=== PATIENT | male | born 1955 | race African-American/Black ===

== ENCOUNTER 2017-08-05 13:06 | Inpatient (IN) | payer SELFPAY ==
[~2017-08-05] VITALS: Ht 180.3 cm; Wt 101.4 kg
[2017-08-05] VITALS (15 sets, daily range): BP systolic 179–230; BP diastolic 76–132; PULSE 75–109; RESP 14–20; TEMP 97.3–98.7; O2SAT 98–100
[2017-08-05] MEDS ORDERED: FISHCAP4 PO (13:18)
[2017-08-05] MEDS ORDERED: ASPI81CH6 CHEW (13:18)
[2017-08-05] MEDS ORDERED: SODIUM CHLORIDE 0.9% FLUSH 10 ML FLUSH IVF PRN (13:45)
--- NOTE | 2017-08-05 13:46 | PD ---
HPI Chief Complaint: Respiratory Symptoms Time Seen by Provider: 13:24 Travel History International Travel<30 days: No Contact w/Intl Traveler<30days: No Traveled to known affect area: No History of Present Illness HPI Patient comes to the emergency department complaining of dyspnea on exertion and dizziness ongoing since bike week in May of this year. Patient states symptoms began after he fell down some stairs. Patient states he is fine if he is resting however if he goes up more than 2 or 3 flights of stairs he becomes short of breath and dizzy. Patient states he was able to ride 30 miles on a bike until this occurred now is only able to go about 5 miles before he becomes short of breath. Patient denies any chest pain with this, fevers, cough, back pain, abdominal pain, neck pain, or numbness or tingling anywhere. Patient states that he does travel as he is retired most recently in the beginning of March. Patient reports he has lost 30 pounds over the past 2 years secondary to bike riding 30 miles on a regular basis. Denies any pain or radiation of pain. PFSH Past Medical History Hypertension: Yes Tetanus Vaccination: > 5 Years Influenza Vaccination: No Past Surgical History Other Surgery: Yes Social History Alcohol Use: Yes (occ) Tobacco Use: Yes Substance Use: No Allergies-Medications (Allergen,Severity, Reaction): Coded Allergies: No Known Allergies (Verified Allergy, Unknown, 08/05/17) Reported Meds & Prescriptions Reported Meds & Active Scripts Active Reported Fish Oil + D3 (Fish Oil-Cholecalciferol) 1,200-1,000 Mg-Unit Cap 1 Cap PO DAILY Aspirin Low Dose (Aspirin) 81 Mg Chew 81 Mg CHEW DAILY Review of Systems Except as stated in HPI: all other systems reviewed are Neg Physical Exam Narrative GENERAL: Well-developed, well nourished, in no acute distress, and non-ill appearing. SKIN: Focused skin assessment warm and dry. HEAD: Atraumatic. Normocephalic. EYES: Pupils equal and round. EOMI. No scleral icterus. No injection or drainage. ENT: No nasal bleeding or discharge. Mucous membranes pink and moist. NECK: Trachea midline. No JVD. Supple. No nuclear rigidity. CARDIOVASCULAR: Regular rate and rhythm. No murmur appreciated. RESPIRATORY: No accessory muscle use. No respiratory distress. Clear to auscultation. Breath sounds equal bilaterally. GASTROINTESTINAL: Abdomen soft, non-tender, nondistended, and no guarding. Hepatic and splenic margins not palpable. Normal bowel sounds x4. No pulsatile mass. MUSCULOSKELETAL: No obvious deformities. No clubbing. No cyanosis. No edema. Full range of motion. NEUROLOGICAL: Awake and alert. No obvious cranial nerve deficits. Motor grossly within normal limits. Normal speech. PSYCHIATRIC: Appropriate mood and affect; insight and judgment normal. Data Data Last Documented VS Vital Signs Date Time Temp Pulse Resp B/P (MAP) Pulse Ox O2 Delivery O2 Flow Rate FiO2 08/05/17 13:26 98 16 99 Room Air 08/05/17 13:10 98.4 179/86 (117) Orders Orders Complete Blood Count With Diff (08/05/17 13:33) Basic Metabolic Panel (Bmp) (08/05/17 13:33) B-Type Natriuretic Peptide (08/05/17 13:33) Act Partial Throm Time (Ptt) (08/05/17 13:33) Prothrombin Time / Inr (Pt) (08/05/17 13:33) Magnesium (Mg) (08/05/17 13:33) Iv Access Insert/Monitor (08/05/17 13:33) Electrocardiogram (08/05/17 13:33) Ecg Monitoring (08/05/17 13:33) Oximetry (08/05/17 13:33) Oxygen Administration (08/05/17 13:33) Chest, Single Ap (08/05/17 13:33) Sodium Chloride 0.9% Flush (Ns Flush) (08/05/17 13:45) Type And Screen (08/05/17 13:56) Red Blood Cells (Rbc) (08/05/17 13:56) Blood Product Administration (08/05/17 13:56) Sodium Chloride 0.9... W/Pantoprazole In (08/05/17 15:06) Sodium Chloride 0.9... W/Pantoprazole In (08/05/17 15:06) Admit Order (Ed Use Only) (08/05/17 ) Vital Signs (Adult) Q4H (08/05/17 15:32) Diet Npo (08/05/17 Dinner) Activity Oob With Assistance (08/05/17 15:32) Notify Dr: Other (08/05/17 15:32) Consult Gastroenterology (08/05/17 ) Labs Laboratory Tests Test 08/05/17 13:30 White Blood Count 10.3 TH/MM3 Red Blood Count 3.49 MIL/MM3 Hemoglobin 4.9 GM/DL Hematocrit 19.5 % Mean Corpuscular Volume 55.8 FL Mean Corpuscular Hemoglobin 14.1 PG Mean Corpuscular Hemoglobin Concent 25.3 % Red Cell Distribution Width 21.7 % Platelet Count 453 TH/MM3 Mean Platelet Volume 8.4 FL CBC Comment AUTO DIFF Differential Total Cells Counted 100 Neutrophils % (Manual) 84 % Band Neutrophils % 1 % Lymphocytes % 10 % Monocytes % 2 % Eosinophils % 3 % Neutrophils # (Manual) 8.8 TH/MM3 Differential Comment FINAL DIFF MANUAL Platelet Estimate HIGH Platelet Morphology Comment ENLARGED Ovalocytes 1+ Acanthocytes OCC Keratocytes OCC Prothrombin Time 10.9 SEC Prothromb Time International Ratio 1.1 RATIO Activated Partial Thromboplast Time 24.2 SEC Blood Urea Nitrogen 10 MG/DL Creatinine 1.26 MG/DL Random Glucose 121 MG/DL Calcium Level 8.8 MG/DL Magnesium Level 2.2 MG/DL Sodium Level 140 MEQ/L Potassium Level 3.8 MEQ/L Chloride Level 107 MEQ/L Carbon Dioxide Level 24.5 MEQ/L Anion Gap 9 MEQ/L Estimat Glomerular Filtration Rate 58 ML/MIN B-Type Natriuretic Peptide 84 PG/ML MDM Medical Decision Making Medical Screen Exam Complete: Yes Emergency Medical Condition: Yes Interpretation(s) Last Impressions Chest X-Ray 08/05/17 1333 Signed Impressions: CONCLUSION: No acute cardiopulmonary disease. Differential Diagnosis CHF exacerbation, pneumonia, anemia, metabolic disturbance, hypovolemia Narrative Course Patient seen and examined. IV was established patient was placed on continuous cardiac monitoring. Initial laboratory radiological studies were ordered. After having hemoglobin found to be less than 5 blood transfusion was ordered. This was discussed with patient who is uncertain initially if he was willing to stay in the hospital and received transfusion as he states he has stuff that he has to do outside the hospital. Patient was given time to get think this over and was agreeable for admission. All questions were answered. Patient remained stable throughout ED course. Discussed patient with Dr. Long, who is in agreement with plan of care and disposition. Discussed patient with hospitalist who is agreeable to admit the patient. HemaPrompt Point of Care Internal Pos. & Neg. Controls: Passed Fecal Specimen Occult Blood: Positive Comment Verbal consent was obtained. Digital rectal exam was performed. Stool specimen applied and test interpreted between 1 and 3 minutes of application and the result was positive. Internal Controls: Both positive and negative controls were validated. shoe patternmaker Ameena was present during this exam. Physician Communication Physician Communication [phone] Gomez, who is agreeable to admit the patient request GI consult be placed. Diagnosis Primary Impression: GI bleed Qualified Codes: K92.2 - Gastrointestinal hemorrhage, unspecified Additional Impression: Symptomatic anemia Admitting Information Admitting Physician Requests: Observation Condition: Stable James Cordero August 05, 2017 13:46
[2017-08-05 13:49] LABS: MEAN CELL VOLUME 55.8 FL (80.0-100.0); MEAN CORPUSCULAR HEMOGLOBIN 14.1 PG (27.0-34.0); MEAN PLATELET VOLUME 8.4 FL (7.0-11.0); PLATELET COUNT 453 TH/MM3 (150-450); RED BLOOD COUNT 3.49 MIL/MM3 (4.50-5.90); RED CELL DISTRIBUTION WIDTH 21.7 % (11.6-17.2); WHITE BLOOD COUNT 10.3 TH/MM3 (4.0-11.0)
[2017-08-05 13:54] LABS: MEAN CORPUSCULAR HGB CONC 25.3 % (32.0-36.0)
[2017-08-05 13:55] LABS: HEMOGLOBIN 4.9 GM/DL (13.0-17.0)
[2017-08-05 13:56] LABS: HEMATOCRIT 19.5 % (39.0-51.0)
[2017-08-05 14:00] LABS: INTERNATIONAL NORMALIZED RATIO 1.1 RATIO; PROTHROMBIN TIME - PATIENT 10.9 SEC (9.8-11.6)
--- NOTE | 2017-08-05 14:03 | RADRPT ---
EXAM DATE: 08/05/2017 1:57 PM EDT AGE/SEX: 61 years / Male INDICATIONS: Short of breath, dizzy CLINICAL DATA: This is the patient's initial encounter. Patient reports that signs and symptoms have been present for 2 months and indicates a pain score of 0/10. MEDICAL/SURGICAL HISTORY: None. None. COMPARISON: No prior [facility] exams available for comparison. FINDINGS: A single AP view of the chest demonstrates the lungs to be symmetrically aerated without evidence of mass, infiltrate or effusion. The cardiomediastinal contours are unremarkable. Osseous structures a re intact. CONCLUSION: No acute cardiopulmonary disease. Electronically signed by: Kalen Montgomery MD 08/05/2017 2:01 PM EDT
[2017-08-05 14:08] LABS: BICARBONATE 24.5 MEQ/L (21.0-32.0); CALCIUM 8.8 MG/DL (8.5-10.1); CREATININE 1.26 MG/DL (0.60-1.30); MAGNESIUM 2.2 MG/DL (1.5-2.5)
[2017-08-05 14:22] LABS: BANDS 1 % (0-6); LYMPHOCYTES 10 % (9-44); MONOCYTES 2 % (0-8); NEUTROPHIL # MANUAL DIFF 8.8 TH/MM3 (1.8-7.7); POLYS (SEG NEUTROPHILS) 84 % (16-70)
[2017-08-05 14:23] LABS: ACANTHOCYTES OCC (NORMAL)
[2017-08-05 14:24] LABS: KERATOCYTES OCC (NORMAL); OVALOCYTES 1+ (NORMAL)
[2017-08-05] MEDS ORDERED: PANTOPRAZOLE INJ 80 MG in SODIUM CHLORIDE 0.9% INJ 35 ML IV ONE (15:06)
[2017-08-05] MEDS: PANTOPRAZOLE INJ 80 MG in SODIUM CHLORIDE 0.9% INJ 100 ML IV SCH (15:33)
[2017-08-05] MEDS ORDERED: FUROSEMIDE 20 MG/2 ML VIAL IV PUSH ONE (16:00)
--- NOTE | 2017-08-05 16:01 | HHI.HP ---
[facility] No Primary Care Physician Admission Diagnosis GI bleed, symptomatic anemia Diagnoses: Chief Complaint: fatigue Travel History International Travel<30 Days: No Contact w/Intl Traveler <30 Da: No Traveled to Known Affected Are: No History of Present Illness 61-year-old black male being admitted for GI bleed. Patient was in his usual state of health until about 2 months ago around the time of bike week when he began experiencing gradual onset of fatigue. 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 Denies having chest pain or shortness of breath at rest. Does feel more "rundown." Denies having any nausea vomiting diarrhea or abdominal pain. Denies any bright red blood per rectum nor any melena, just reports that his stool is somewhat darker than usual. Bowel movements are unchanged in the pattern. Takes only baby aspirin a day, denies any Aleve or ibuprofen or any other NSAID use. Patient reports having a colonoscopy done about 4-5 years ago in [place] and' s was told that it was good without any polyps or tumors. Patient reports being adopted so he does not know his family colorectal history. Patient had plans to go to [facility] in about 10 days and decide to get checked out before departing. ER performed hemoccult is + with hemoglobin 4.9. Review of Systems Except as stated in HPI: all other systems reviewed are Neg Past Family Social History Past Medical History Hypertension Allergies: Coded Allergies: No Known Allergies (Verified Allergy, Unknown, 08/05/17) Family History Unknown to patient Social History Denies smoking, reports drinking 1 to 2 drinks of alcohol occasionally Physical Exam Vital Signs Vital Signs Date Time Temp Pulse Resp B/P (MAP) Pulse Ox O2 Delivery O2 Flow Rate FiO2 08/05/17 13:26 98 16 99 Room Air 08/05/17 13:10 98.4 109 16 179/86 (117) 100 Physical Exam VS: afebrile GENERAL: lying in bed, NAD SKIN: Warm and dry. EYES: No scleral icterus. No injection or drainage. ENT: No nasal bleeding or discharge. Mucous membranes pink and moist. CARDIOVASCULAR: Regular rate and rhythm. no murmurs RESPIRATORY: No accessory muscle use. Clear to auscultation. Breath sounds equal bilaterally. GASTROINTESTINAL: Abdomen soft, non-tender, nondistended. Extremities: No clubbing, cyanosis, or edema. No obvious deformities. MUSCULOSKELETAL: adequate muscle bulk and tone for age and habitus NEUROLOGICAL: Awake and alert. No obvious cranial nerve deficits. No facial droop nor slurred speech noted. PSYCHIATRIC: Appropriate mood and affect; insight and judgment normal. Laboratory Laboratory Tests Test 08/05/17 13:30 White Blood Count 10.3 Red Blood Count 3.49 Hemoglobin 4.9 Hematocrit 19.5 Mean Corpuscular Volume 55.8 Mean Corpuscular Hemoglobin 14.1 Mean Corpuscular Hemoglobin Concent 25.3 Red Cell Distribution Width 21.7 Platelet Count 453 Mean Platelet Volume 8.4 CBC Comment AUTO DIFF Differential Total Cells Counted 100 Neutrophils % (Manual) 84 Band Neutrophils % 1 Lymphocytes % 10 Monocytes % 2 Eosinophils % 3 Neutrophils # (Manual) 8.8 Differential Comment FINAL DIFF MANUAL Platelet Estimate HIGH Platelet Morphology Comment ENLARGED Ovalocytes 1+ Acanthocytes OCC Keratocytes OCC Prothrombin Time 10.9 Prothromb Time International Ratio 1.1 Activated Partial Thromboplast Time 24.2 Blood Urea Nitrogen 10 Creatinine 1.26 Random Glucose 121 Calcium Level 8.8 Magnesium Level 2.2 Sodium Level 140 Potassium Level 3.8 Chloride Level 107 Carbon Dioxide Level 24.5 Anion Gap 9 Estimat Glomerular Filtration Rate 58 B-Type Natriuretic Peptide 84 Result Diagram: 08/05/17 1330 08/05/17 1330 Imaging Last Impressions Chest X-Ray 08/05/17 1333 Signed Impressions: CONCLUSION: No acute cardiopulmonary disease. Caprini VTE Risk Assessment Caprini VTE Risk Assessment: Mod/High Risk (score >= 2) VTE Pharm Contraindication: Active bleeding Caprini Risk Assessment Model Point Value = 1 Point Value = 2 Point Value = 3 Point Value = 5 Age 41-60 Minor surgery BMI > 25 kg/m2 Swollen legs Varicose veins or History of unexplained or recurrent spontaneous Oral contraceptives or hormone replacement Sepsis (< 1 month) Serious lung disease, including pneumonia (< 1 month) Abnormal pulmonary function Acute myocardial infarction Congestive heart failure (< 1 month) History of inflammatory bowel disease Medical patient at bed rest Age 61-74 Arthroscopic surgery Major open surgery (> 45 min) Laparoscopic surgery (> 45 min) Malignancy Confined to bed (> 72 hours) Immobilizing plaster cast Central venous access Age >= 75 History of VTE Family history of VTE Factor V Leiden Prothrombin [id number] Lupus anticoagulant Anticardiolipin antibodies Elevated serum homocysteine Heparin-induced thrombocytopenia Other congenital or acquired thrombophilia Stroke (< 1 month) Elective arthroplasty Hip, pelvis, or leg fracture Acute spinal cord injury (< 1 month) Prophylaxis Regimen Total Risk Factor Score Risk Level Prophylaxis Regimen 0-1 Low Early ambulation 2 Moderate Order ONE of the following: *Sequential Compression Device (SCD) *Heparin 5000 units SQ BID 3-4 Higher Order ONE of the following medications: *Heparin 5000 units SQ TID *Enoxaparin/Lovenox 40 mg SQ daily (WT < 150 kg, CrCl > 30 mL/min) *Enoxaparin/Lovenox 30 mg SQ daily (WT < 150 kg, CrCl > 10-29 mL/min) *Enoxaparin/Lovenox 30 mg SQ BID (WT < 150 kg, CrCl > 30 mL/min) AND/OR *Sequential Compression Device (SCD) 5 or more Highest Order ONE of the following medications: *Heparin 5000 units SQ TID (Preferred with Epidurals) *Enoxaparin/Lovenox 40 mg SQ daily (WT < 150 kg, CrCl > 30 mL/min) *Enoxaparin/Lovenox 30 mg SQ daily (WT < 150 kg, CrCl > 10-29 mL/min) *Enoxaparin/Lovenox 30 mg SQ BID (WT < 150 kg, CrCl > 30 mL/min) AND *Sequential Compression Device (SCD) Assessment and Plan Assessment and Plan 61-year-old white male admitted for GI bleed Shortness of breath -Exertional in origin, chest x-ray is negative GI bleed -Hemoglobin 4.9, total order 3 units of blood to be transfused -GI consulted and notified, scopes anticipated Physician Certification 2 Midnight Certification Type: Admission for Inpatient Services Order for Inpatient Services The services are ordered in accordance with Medicare regulations or non- Medicare payer requirements, as applicable. In the case of services not specified as inpatient-only, they are appropriately provided as inpatient services in accordance with the 2-midnight benchmark. Estimated LOS (days): 2 2 days is the estimated time the patient will need to remain in the hospital, assuming treatment plan goals are met and no additional complications. Post-Hospital Plan: Not yet determined Jefry Gomez MD August 05, 2017 16:01
--- NOTE | 2017-08-05 16:08 | PD.CONS ---
HPI History of Present Illness This is a 61 year old M who presented to the ER earlier today with complaints of dyspnea on exertion and dizziness, work up in the ER revealed a severely low hemoglobin. Pt denies any GI symptoms at this time, denies any obvious bleeding in stool. Reports a seven pound weight loss but states he has been riding his bike to help him lose weight. Has never had EGD. Last colonoscopy in 2014 and thinks it was a normal exam. Pt does not know his family history, he was adopted. Reports occasional ETOH. Denies smoking. (Gilma Gr) PFSH Past Medical History Hypertension (Gilma Gr) Coded Allergies: No Known Allergies (Verified Allergy, Unknown, 08/05/17) Family History Unknown to patient Social History Denies smoking, reports drinking 1 to 2 drinks of alcohol occasionally (Gilma Gr) Review of Systems Gastrointestinal: DENIES: Abdominal pain, Black stools, Bloody stools, Constipation, Diarrhea, Nausea, Vomiting, Hematemesis (Gilma Gr) GI Exam Vitals I&O Vital Signs Date Time Temp Pulse Resp B/P (MAP) Pulse Ox O2 Delivery O2 Flow Rate FiO2 08/05/17 13:26 98 16 99 Room Air 08/05/17 13:10 98.4 109 16 179/86 (117) 100 Imaging Last Impressions Chest X-Ray 08/05/17 1333 Signed Impressions: CONCLUSION: No acute cardiopulmonary disease. Laboratory Test 08/05/17 13:30 White Blood Count 10.3 TH/MM3 Red Blood Count 3.49 MIL/MM3 Hemoglobin 4.9 GM/DL Hematocrit 19.5 % Mean Corpuscular Volume 55.8 FL Mean Corpuscular Hemoglobin 14.1 PG Mean Corpuscular Hemoglobin Concent 25.3 % Red Cell Distribution Width 21.7 % Platelet Count 453 TH/MM3 Mean Platelet Volume 8.4 FL CBC Comment AUTO DIFF Differential Total Cells Counted 100 Neutrophils % (Manual) 84 % Band Neutrophils % 1 % Lymphocytes % 10 % Monocytes % 2 % Eosinophils % 3 % Neutrophils # (Manual) 8.8 TH/MM3 Differential Comment FINAL DIFF MANUAL Platelet Estimate HIGH Platelet Morphology Comment ENLARGED Ovalocytes 1+ Acanthocytes OCC Keratocytes OCC Prothrombin Time 10.9 SEC Prothromb Time International Ratio 1.1 RATIO Activated Partial Thromboplast Time 24.2 SEC Blood Urea Nitrogen 10 MG/DL Creatinine 1.26 MG/DL Random Glucose 121 MG/DL Calcium Level 8.8 MG/DL Magnesium Level 2.2 MG/DL Sodium Level 140 MEQ/L Potassium Level 3.8 MEQ/L Chloride Level 107 MEQ/L Carbon Dioxide Level 24.5 MEQ/L Anion Gap 9 MEQ/L Estimat Glomerular Filtration Rate 58 ML/MIN B-Type Natriuretic Peptide 84 PG/ML Physical Examination HEENT: Normocephalic; atraumatic CHEST: Even/unlabored ABDOMEN: Soft, nondistended, nontender; bowel sounds active EXTREMITIES: No clubbing, cyanosis, or edema. SKIN: Normal; no rash; no jaundice. VP PRODUCT MANAGEMENT: Alert and oriented times three. (Gilma Gr) Assessment and Plan Plan Assessment: - Anemia, microcytic, hypochromic Pt denies any obvious GIB, no GI symptoms at this time. Does report a 7 lb weight loss but states intentional, has been riding his bike. Complaint on arrival was dyspnea with exertion and dizziness. Last colonoscopy in 2014 and states normal exam. Has never had EGD Denies smoking. Occasional ETOH Family history unknown, pt adopted Plan: EGD/colonoscopy tomorrow Obtain consent Clear liquids today Golytely prep NPO after MN 3 U PRBCs ordered Serial H/H Protonix gtt Further recommendations based on findings of above Pt has been seen and examined by myself and Dr. Elise and this note is written on his behalf (Gilma Gr) Physician Comments Seen and examined with AMBREEN, egd/colonoscopy tomorrow. Transfuse as needded to get Hb above 8.5. Iv protonix. Will follow. Thank you (Maddie Elise MD) Gilma Gr August 05, 2017 16:08 Maddie Elise MD August 05, 2017 17:55
[2017-08-05] MEDS ORDERED: PEG (High)/E-LYTE SOLN 4000 ML BTL PO ONE (16:30)
[2017-08-05] MEDS: cloNIDine HCL 0.1 MG TAB PO PRN (20:10)
[2017-08-06] VITALS (8 sets, daily range): BP systolic 141–181; BP diastolic 65–98; PULSE 62–75; RESP 16–20; TEMP 97.3–98.4; O2SAT 97–100
[2017-08-06] MEDS: cloNIDine HCL 0.1 MG TAB PO PRN ×2 (02:02→23:35)
[2017-08-06] MEDS: PANTOPRAZOLE INJ 80 MG in SODIUM CHLORIDE 0.9% INJ 100 ML IV SCH ×3 (03:49→21:58)
[2017-08-06 07:13] LABS: HEMATOCRIT 25.8 % (39.0-51.0); HEMOGLOBIN 7.6 GM/DL (13.0-17.0); MEAN CELL VOLUME 62.1 FL (80.0-100.0); MEAN CORPUSCULAR HEMOGLOBIN 18.2 PG (27.0-34.0); MEAN PLATELET VOLUME 8.8 FL (7.0-11.0); PLATELET COUNT 380 TH/MM3 (150-450); RED BLOOD COUNT 4.16 MIL/MM3 (4.50-5.90); RED CELL DISTRIBUTION WIDTH 31.2 % (11.6-17.2); WHITE BLOOD COUNT 10.9 TH/MM3 (4.0-11.0)
[2017-08-06 07:37] LABS: MEAN CORPUSCULAR HGB CONC 29.4 % (32.0-36.0)
[2017-08-06] MEDS ORDERED: PILL SPLITTER OTHER PRN (12:00)
[2017-08-06] MEDS ORDERED: PROPOFOL 200 MG/20 ML AMP IV ONE (12:00)
[2017-08-06] MEDS ORDERED: ePHEDrine/NS 25 MG/5 ML SYRINGE IV ONE (12:00)
[2017-08-06] MEDS ORDERED: LIDOCAINE HCL 1% PF 5 ML SYRINGE OTHER ONE (12:00)
--- NOTE | 2017-08-06 12:17 | GIPROC ---
[facility] [address] [facility]. [facility] [place], [address] EGD PROCEDURE REPORT EXAM DATE: 08/06/2017 PATIENT NAME: Kodak Caban MR #: [id number] BIRTHDATE: 1955 ATTENDING: Maddie Elise MD ORDER #: [id number] FACILITIES MAINTENANCE ENGINEER: Divya Garcia STATUS: inpatient INDICATIONS: The patient is a 61 yr old male here for an EGD due to iron deficiency anemia PROCEDURE PERFORMED: EGD, diagnostic MEDICATIONS: Per Anesthesia and None. TOPICAL ANESTHETIC: CONSENT: The patient understands the risks and benefits of the procedure and understands that these risks include, but are not limited to: sedation, allergic reaction, infection, perforation and/or bleeding. Alternative means of evaluation and treatment include, among others: physical exam, x-rays, and/or surgical intervention. The patient elects to proceed with this endoscopic procedure. medical equipment was checked for proper function. Hand hygiene and appropriate measures for infection prevention was taken. After the risks, benefits and alternatives of the procedure were thoroughly explained, Informed consent was verified, confirmed and timeout was successfully executed by the treatment team. The patient was anesthetized with topical anesthesia and the EC-[id number] (Pedi C) endoscope was introduced through the mouth and advanced to the second portion of the duodenum. Retroflexed views revealed no abnormalities The gastroscope was then slowly withdrawn and removed. ESOPHAGUS: The mucosa of the esophagus appeared normal. STOMACH: There was mild gastritis in the gastric antrum. DUODENUM: The duodenal mucosa appeared normal in the bulb and second portion of the duodenum. ADVERSE EVENTS: There were no complications. IMPRESSIONS: 1. The esophagus appeared normal 2. There was mild gastritis in the gastric antrum 3. Normal duodenal mucosa in the bulb and second portion of the duodenum 4. Retroflexed views revealed no abnormalities RECOMMENDATIONS: 1. Anti-reflux regimen 2. Continue PPI 3. Avoid NSAIDS PATIENT CONDITION: stable DISPOSITION: Inpatient REPEAT EXAM: Return 3 years EGD Maddie Elise MD eSigned: Maddie Elise MD 08/06/2017 12:17 PM cc: PATIENT NAME: Kodak Caban#: [id number]
--- NOTE | 2017-08-06 12:36 | GIPROC ---
[facility] [address] [facility]. [facility], [address] COLONOSCOPY PROCEDURE REPORT EXAM DATE: 08/06/2017 PATIENT NAME: Kodak Caban MR #: [id number] BIRTHDATE: 1955 ENDOSCOPIST: Maddie Elise MD ORDER #: [id number] FINISHED GOODS INSPECTOR: Divya Garcia STATUS: inpatient INDICATIONS: The patient is a 61 yr old male here for a colonoscopy due to iron deficiency anemia PROCEDURE PERFORMED: Colonoscopy with biopsy MEDICATIONS: Per Anesthesia and None. PREP QUALITY: The [place] Bowel Prep Score was Right colon 1, Mid colon 2, and Left colon 2. Total = 5. PREP TYPE:GoLytely ESTIMATED BLOOD LOSS: None CONSENT: The patient understands the risks and benefits of the procedure and understands that these risks include, but are not limited to: sedation, allergic reaction, infection, perforation and/or bleeding. Alternative means of evaluation and treatment include, among others: physical exam, x-rays, and/or surgical intervention. The patient elects to proceed with this endoscopic procedure. medical equipment was checked for proper function. Hand hygiene and appropriate measures for infection prevention was taken. After the risks, benefits and alternatives of the procedure were thoroughly explained, Informed consent was verified, confirmed and timeout was successfully executed by the treatment team. A digital exam revealed external hemorrhoids The Pentax EC-[id number] endoscope was introduced through the anus and advanced to the cecum, which was identified by both the appendix and ileocecal valve. The instrument was then slowly withdrawn as the colon was fully examined. COLON FINDINGS: A circumferential fungating mass was found in the ascending colon. Multiple biopsies were performed using cold forceps. Retroflexed views revealed internal hemorrhoids and Retroflexed views revealed medium internal hemorrhoids The scope was then completely withdrawn from the patient and the procedure terminated. PROCEDURE WITHDRAWAL TIME:7minutes ADVERSE EVENTS: There were no complications. IMPRESSIONS: 1. Circumferential mass was found in the ascending colon; multiple biopsies were performed using cold forceps 2. Retroflexed views revealed internal hemorrhoids 3. Retroflexed views revealed medium internal hemorrhoids 4. Revealed external hemorrhoids RECOMMENDATIONS: 1. Await biopsy results. Biopsy results will not be ready for 7-10 days. If you don't hear from us in two weeks, call our office for results. 2. Continue surveillance 3. Yearly hemoccult 4. Xray for CT of abdomen with contrast 5. Xray for CT of pelvis with contrast 6. Surgery consult RECALL: Return 1 year Colonoscopy, pending biopsy results Maddie Elise MD eSigned: Maddie Elise MD 08/06/2017 12:36 PM cc: PATIENT NAME: Caban Kodak Shaina MR#: [id number]
[2017-08-06] MEDS ORDERED: DIATRIZOATE MEGLUM/DIATRIZOATE SOD 9 ML CUP PO ONE (13:15)
[2017-08-06] MEDS: amLODIPine BESYLATE 5 MG TAB PO SCH (13:15)
--- NOTE | 2017-08-06 14:39 | EKG ---
Date Performed: 08/06/2017 Time Performed: 09:35:13 PTAGE: 61 years EKG: Sinus rhythm LEFT VENTRICULAR HYPERTROPHY AND ST-T CHANGE ABNORMAL ECG NO PREVIOUS TRACING DOCTOR: Jensen Garza Interpretating Date/Time 08/06/2017 14:38:46
--- NOTE | 2017-08-06 15:13 | PD.CONS ---
cc: Kalen Fernando MD [facility] Service General Surgery Consult Requested By Dr. Elise Reason for Consult Colon mass Primary Care Physician No Primary Care Physician History of Present Illness This is a 61 year old male with no significant past medical history who presented to the ED with shortness of breath and generalized weakness. He first noticed general malaise about 8 weeks ago with increase in symptoms. On arrival his hemoglobin was 4.9. After three units of PRBCs it increased to 7.6. He has an EGD and colonoscopy today. The EGD only showed some mild gastritis. The colonoscopy showed a circumferential mass in the ascending colon. A biopsy is pending. A CT abdomen/pelvis has been ordered but not completed. Of note, the patient is scheduled to go on a trip to [facility] in about 10 days. A General Surgery consultation has been requested. Review of Systems Constitutional: COMPLAINS OF: Fatigue, Weight loss, Change in appetite Endocrine: DENIES: Polydipsia, Polyuria, Polyphagia Eyes: DENIES: Diplopia, Eye inflammation Ears, nose, mouth, throat: DENIES: Hearing loss Respiratory: DENIES: Cough Cardiovascular: COMPLAINS OF: Dyspnea on Exertion, DENIES: Chest pain Gastrointestinal: COMPLAINS OF: Black stools, DENIES: Nausea, Vomiting Genitourinary: DENIES: Urinary incontinence Musculoskeletal: DENIES: Joint pain Integumentary: DENIES: Abnormal pigmentation Hematologic/lymphatic: DENIES: Bruising Immunologic/allergic: DENIES: Eczema Neurologic: DENIES: Headache, Localized weakness Psychiatric: DENIES: Confusion, Mood changes, Depression Past Family Social History Past Medical History None Past Surgical History Vasectomy Reported Medications None Allergies: Coded Allergies: No Known Allergies (Verified Allergy, Unknown, 08/05/17) Active Ordered Medications Current Medications Medications (Trade) Dose Ordered Sig/Tika Route Start Time Stop Time Status Last Admin (NS Flush) 2 ml UNSCH PRN IVF 08/05/17 13:45 Pantoprazole Sodium 80 mg/ Sodium Chloride 100 ml @ 10 mls/hr Q10H IV 08/05/17 15:06 08/06/17 03:49 (Catapres) 0.1 mg Q6H PRN PO 08/05/17 20:00 08/06/17 02:02 (Norvasc) 2.5 mg DAILY PO 08/06/17 11:30 08/06/17 13:15 (Pill Splitter) 1 ea UNSCH PRN OTHER 08/06/17 12:00 Family History Patient is adopted Social History Denies tobacco use Occasional ETOH use--- socially with friends Denies illicit drug use He is a retired Social Services Director. He is originally from [place] but lives in [place] now. Physical Exam Vital Signs Vital Signs Date Time Temp Pulse Resp B/P (MAP) Pulse Ox O2 Delivery O2 Flow Rate FiO2 08/06/17 12:48 98.5 79 16 112/59 (76) 96 08/06/17 08:17 97.6 65 20 170/86 (114) 97 08/06/17 03:45 98.4 65 16 141/65 100 08/06/17 03:00 97.9 63 18 153/79 (103) 100 08/06/17 03:00 97.9 63 16 153/79 100 08/06/17 02:15 97.9 67 16 181/93 100 08/06/17 01:52 97.3 70 16 180/86 99 08/06/17 00:00 98.0 62 16 180/98 (125) 99 08/05/17 21:05 98.0 75 20 199/103 (135) 100 08/05/17 21:03 98.0 76 20 199/103 100 08/05/17 20:08 97.8 79 16 195/89 08/05/17 19:52 230/109 (149) 08/05/17 19:42 97.3 79 16 230/109 98 08/05/17 19:39 77 20 222/132 (162) 99 08/05/17 19:27 97.3 92 16 222/132 100 08/05/17 19:00 98.0 82 16 229/102 98 08/05/17 17:33 77 16 199/93 (128) 100 Room Air 08/05/17 16:56 97.8 80 16 200/100 100 08/05/17 16:54 16 100 Room Air 08/05/17 16:51 98.7 87 16 181/76 100 08/05/17 16:40 98.4 77 14 184/85 100 Physical Exam GENERAL: Very pleasant 61 year old male resting in bed in no acute distress SKIN: Warm and dry. HEAD: Atraumatic. Normocephalic. EYES: Pupils equal and round. No scleral icterus. No injection or drainage. ENT: No nasal bleeding or discharge. Mucous membranes pink and moist. NECK: Trachea midline. CARDIOVASCULAR: Regular rate and rhythm. RESPIRATORY: No accessory muscle use. Clear to auscultation. Breath sounds equal bilaterally. GASTROINTESTINAL: Abdomen soft, non-tender, nondistended. No visible scars of hernias. MUSCULOSKELETAL: Extremities without clubbing, cyanosis, or edema. No obvious deformities. NEUROLOGICAL: Awake and alert. No obvious cranial nerve deficits. Motor grossly within normal limits. Five out of 5 muscle strength in the arms and legs. Normal speech. PSYCHIATRIC: Appropriate mood and affect; insight and judgment normal. Laboratory Laboratory Tests Test 08/06/17 06:15 White Blood Count 10.9 Red Blood Count 4.16 Hemoglobin 7.6 Hematocrit 25.8 Mean Corpuscular Volume 62.1 Mean Corpuscular Hemoglobin 18.2 Mean Corpuscular Hemoglobin Concent 29.4 Red Cell Distribution Width 31.2 Platelet Count 380 Mean Platelet Volume 8.8 Result Diagram: 08/06/17 0615 08/05/17 1330 Assessment and Plan Assessment and Plan 61 year old male with anemia; colon mass visualized on colonoscopy -Await CT abd/pelvis -Await biopsy results -Transfuse as necessary -Will likely need an operation for mass---will discuss further with him once results available -Thank you for this consult; We will continue to follow Attending Note - Dr. Fernando Patient seen and examined Abdomen benign Likely has at least stage III disease; will obtain MRI of liver to evaluate small lesions x 3; if positive, may need neoadjuvant chemotherapy first if indicated. Will discuss with Med Onc Will follow; potentially surgery Thursday, depending on findings - lap assisted Right hemicolectomy with/without port placement. The exam, history, and the medical decision-making described in the above note were completed with the assistance of the mid-level provider. I reviewed and agree with the findings presented. I attest that I had a qlla-np-biou encounter with the patient on the same day, and personally performed and documented my assessment and findings in the medical record. Discussed Condition With Marietta MensahP/First Castaneda WRAP YARN SORTER August 06, 2017 15:13 Kalen Fernando MD August 06, 2017 21:11
--- NOTE | 2017-08-06 15:29 | HHI.PR ---
Subjective Remarks Patient denied chest pain He told me he is adopted i he does not have any information about his biological family as far as any history of colon cancer or other GI malignancy or history of anemia Objective Vitals Vital Signs Date Time Temp Pulse Resp B/P (MAP) Pulse Ox O2 Delivery O2 Flow Rate FiO2 08/06/17 12:48 98.5 79 16 112/59 (76) 96 08/06/17 08:17 97.6 65 20 170/86 (114) 97 08/06/17 03:45 98.4 65 16 141/65 100 08/06/17 03:00 97.9 63 18 153/79 (103) 100 08/06/17 03:00 97.9 63 16 153/79 100 08/06/17 02:15 97.9 67 16 181/93 100 08/06/17 01:52 97.3 70 16 180/86 99 08/06/17 00:00 98.0 62 16 180/98 (125) 99 08/05/17 21:05 98.0 75 20 199/103 (135) 100 08/05/17 21:03 98.0 76 20 199/103 100 08/05/17 20:08 97.8 79 16 195/89 08/05/17 19:52 230/109 (149) 08/05/17 19:42 97.3 79 16 230/109 98 08/05/17 19:39 77 20 222/132 (162) 99 08/05/17 19:27 97.3 92 16 222/132 100 08/05/17 19:00 98.0 82 16 229/102 98 08/05/17 17:33 77 16 199/93 (128) 100 Room Air 08/05/17 16:56 97.8 80 16 200/100 100 08/05/17 16:54 16 100 Room Air 08/05/17 16:51 98.7 87 16 181/76 100 08/05/17 16:40 98.4 77 14 184/85 100 I/O 08/05/17 08/05/17 08/05/17 08/06/17 08/06/17 08/06/17 06:59 14:59 22:59 06:59 14:59 22:59 Intake Total 860 ml 2420 ml 400 ml Balance 860 ml 2420 ml 400 ml Intake Oral 2000 ml IV Total 35 ml Packed Cells 800 ml 400 ml Blood Product IV Normal Saline Flush 25 ml 20 ml Other 400 ml # Voids 2 5 # Bowel Movements 7 Result Diagram: 08/06/17 0615 08/05/17 1330 Objective Remarks GENERAL: This is a well-nourished, well-developed patient, in no apparent distress. CARDIOVASCULAR: RRR, no gallops, or rubs. RESPIRATORY: Fair air entry bilaterally. No W, R, or R GASTROINTESTINAL: Abdomen soft, non-tender, nondistended. Positive bowel sounds MUSCULOSKELETAL: Extremities without clubbing, cyanosis, or edema. Pedal pulses appreciated NEUROLOGICAL: Awake and alert. Moves all extremity. Normal speech.no focal neurological deficit A/P Assessment and Plan 61-year-old white male admitted for GI bleed Shortness of breath -Exertional in origin, chest x-ray is negative Mostly due to severe acute anemia GI bleed -Hemoglobin 4.9, total order 3 units of blood to be transfused -Appreciate GI consultation, patient going for EGD today and colonoscopy Hypertension blood pressure 170/86 I will add Norvasc and monitor Annamarie Carrillo MD August 06, 2017 15:29
[2017-08-06] MEDS ORDERED: IOHEXOL 350 MG/ML 10 ML VIAL (for RAD DIAG) IVCONTRAST ONE (18:48)
--- NOTE | 2017-08-06 19:02 | RADRPT ---
EXAM DATE: 08/06/2017 6:51 PM EDT AGE/SEX: 61 years / Male INDICATIONS: Possible GI bleed, or mass. CLINICAL DATA: This is the patient's initial encounter. Patient reports that signs and symptoms have been present for 1 day and indicates a pain score of 0/10. MEDICAL/SURGICAL HISTORY: Hypertension. None. ORAL CONTRAST: Prescribed oral contrast ingested. RADIATION DOSE: 7.04 CTDI (mGy) COMPARISON: No prior [facility] exams available for comparison. TECHNIQUE: Multiple contiguous axial images were obtained through the abdomen and pelvis following b olus infusion of 100 ml Omnipaque 350 (iohexol) nonionic water-soluble contrast as a single exam do se. Prescribed oral contrast ingested. Using automated exposure control and adjustment of the mA and /or kV according to patient size, the radiation dose was kept as low as reasonably achievable to obta in optimal diagnostic quality images. FINDINGS: Lower chest: No acute abnormality is identified. Hepatobiliary: There are 3 low-density lesions in the liver that are too small to characterize. This includes a 5 mm low-density lesion in the right posterior liver on image 8, a 7 mm low-density lesion in the right liver on image 11 and a 6 mm low-density lesion in the right posterior liver on image 1 5. No calcified gallstones are present. Kidneys: No hydronephrosis, stone, or mass. Adrenal Glands: Within normal limits. Spleen: Within normal limits. Pancreas: Within normal limits. Vascular: The aorta is nonaneurysmal. There is mild atherosclerotic disease. Bowel/Mesentery: Stomach and small bowel demonstrate no acute finding. There is a soft tissue mass in the mid ascending colon causing luminal narrowing. The mass measures approximately 5.1 x 4.0 cm and there are adjacent small nodules in the pericolic fat. At least 2 mildly enlarged lymph nodes are pre sent in the adjacent mesentery measuring up to 11 mm. Abdominal Wall: No hernia is visualized. Retroperitoneum: No lymphadenopathy. Bladder: No wall thickening or mass. Reproductive: Within normal limits. Inguinal: No lymphadenopathy or hernia. Musculoskeletal: No acute osseous abnormality is identified. There are degenerative changes of the jose mbar spine with cortical thickening along the left posterior iliac bone. No concerning lytic or blast ic lesion is seen. CONCLUSION: 1. There is a soft tissue mass in the mid ascending colon causing wall thickening and luminal narrow ing. The appearance is characteristic of a primary colon malignancy. The lesion measures up to 5.1 x 4.0 cm. Adjacent mildly enlarged suspicious lymph nodes are present in the mesentery measuring up to 11 mm. 2. There are 3 low-density lesions in the liver that are too small to characterize, measuring up to 7 mm. Given the colon findings, this should ideally be further characterized at some point with liver protocol MRI with and without intravenous contrast. Electronically signed by: Manoj Tripathi MD 08/06/2017 7:01 PM EDT
[2017-08-07] VITALS (11 sets, daily range): BP systolic 149–195; BP diastolic 68–103; PULSE 62–83; RESP 16–20; TEMP 97.1–98.5; O2SAT 95–100
[2017-08-07] MEDS: cloNIDine HCL 0.1 MG TAB PO PRN ×3 (06:28→17:20)
[2017-08-07] MEDS: PANTOPRAZOLE INJ 80 MG in SODIUM CHLORIDE 0.9% INJ 100 ML IV SCH ×2 (06:29→17:20)
[2017-08-07 08:39] LABS: HEMATOCRIT 27.4 % (39.0-51.0); HEMOGLOBIN 7.8 GM/DL (13.0-17.0)
[2017-08-07] MEDS: amLODIPine BESYLATE 5 MG TAB PO SCH (08:56)
--- NOTE | 2017-08-07 11:23 | HHI.GIFU ---
Subjective Remarks Pt sitting on the couch by the window States multiple times that he is going to sign himself out and go home States he has not been given any results, discussed with pt colonoscopy/EGD/and CT findings GS also discussed with pt these findings yesterday Pt states he wants to go to [facility] to see his sister Denies any GI symptoms at this time He is angry that people keep asking him if he has abdominal pain (Gilma Gr) Objective Vitals I&O Vital Signs Date Time Temp Pulse Resp B/P (MAP) Pulse Ox O2 Delivery O2 Flow Rate FiO2 08/07/17 08:10 98.5 62 20 149/68 (95) 99 08/07/17 06:23 68 170/87 (114) 08/07/17 04:42 97.1 62 20 171/91 (117) 100 08/07/17 00:08 97.7 67 20 182/89 (120) 99 08/06/17 20:41 98.1 75 20 161/95 (117) 100 08/06/17 16:00 97.7 67 20 162/84 (110) 97 08/06/17 12:48 98.5 79 16 112/59 (76) 96 I/O 08/06/17 08/06/17 08/06/17 08/07/17 08/07/17 08/07/17 07:00 15:00 23:00 07:00 15:00 23:00 Intake Total 2420 ml 640 ml Balance 2420 ml 640 ml Intake Oral 2000 ml 240 ml Packed Cells 400 ml Blood Product IV Normal Saline Flush 20 ml Other 400 ml # Voids 5 2 1 # Bowel Movements 7 1 Laboratory Laboratory Tests Test 08/07/17 06:45 Hemoglobin 7.8 Hematocrit 27.4 Imaging Last Impressions Abdomen/Pelvis CT 08/06/17 0000 Signed Impressions: CONCLUSION: 1. There is a soft tissue mass in the mid ascending colon causing wall thicken ing and luminal narrowing. The appearance is characteristic of a primary colon malignancy. The lesion measures up to 5.1 x 4.0 cm. Adjacent mildly enlarged daly spicious lymph nodes are present in the mesentery measuring up to 11 mm. 2. There are 3 low-density lesions in the liver that are too small to adilene diaz, measuring up to 7 mm. Given the colon findings, this should ideally be fu rther characterized at some point with liver protocol MRI with and without intr avenous contrast. Chest X-Ray 08/05/17 1333 Signed Impressions: CONCLUSION: No acute cardiopulmonary disease. Physical Exam HEENT: Normocephalic; atraumatic CHEST: Even/unlabored CARDIAC: RRR ABDOMEN: Distended, soft, nontender, bowel sounds active EXTREMITIES: No clubbing, cyanosis, or edema. SKIN: Normal; no rash; no jaundice. ASSEMBLY LINE BRAZER: Alert and oriented times three. (Gilma Gr) Assessment and Plan Plan Assessment: - Anemia, microcytic, hypochromic Pt denies any obvious GIB, no GI symptoms at this time. Does report a 7 lb weight loss but states intentional, has been riding his bike. Complaint on arrival was dyspnea with exertion and dizziness. Last colonoscopy in 2014 and states normal exam. Has never had EGD Denies smoking. Occasional ETOH Family history unknown, pt adopted (08/07) Pt very angry states he is going to sign himself out and go home. He reports no one has given him any results yet. I discussed with him EGD/colonoscopy/and CT findings. also discussed these findings with pt last night. States no one is watching his house and that he is going to [facility] to see his sister. GS has ordered a MRI to further evaluate liver findings. Planning on potential surgery Thursday- lap assisted right hemicolectomy with/without port placement- they have discussed case with medical oncology H/H remains low currently 7.8/27.4- 2 U PRBCs ordered EGD --> Normal esophagus. Mild gastritis in the gastric antrum. Normal duodenal mucosa in the bulb and second portion of the duodenum. Colonoscopy --> Circumferential mass was found in the ascending colon, multiple biopsies. Internal and external hemorrhoids. CT abdomen and pelvis W IV contrast (08/06) There is a soft tissue mass in the mid ascending colon causing wall thickening and luminal narrowing. The appearance is characteristic of a primary colon malignancy. The lesion measures up to 5.1 x 4.0 cm. Adjacent mildly enlarged suspicious lymph nodes are present in the mesentery measuring up to 11 mm. There are 3 low-density lesions in the liver that are too small to characterize, measuring up to 7 mm. Given the colon findings, this should ideally be further characterized at some point with liver protocol MRI with and without intravenous contrast. Plan: MRI abdomen W and WO contrast AFP Medical oncology consult pending GS following- possible surgery Thursday Monitor H/H Transfuse as indicated DC Protonix gtt Protonix PO EGD and colon biopsies pending Further recommendations based on findings of above and clinical course Pt has been seen and examined by myself and Dr. Yu and this note is written on his behalf (Gimla Gr) Physician Comments Agree with the plan as above, will check biopsy results and MRI findings. Further recommendations to follow. (Talha Yu MD) Gilma Gr Aug 07, 2017 11:23 Talha Yu MD Aug 07, 2017 13:04
--- NOTE | 2017-08-07 14:28 | HHI.PR ---
cc: Kalen Fernando MD Subjective Subjective Notes Resting in bed RN starting IV for PRBCs Objective Vitals/I&O Vital Signs Date Time Temp Pulse Resp B/P (MAP) Pulse Ox O2 Delivery O2 Flow Rate FiO2 08/07/17 12:09 97.3 64 16 155/74 97 08/05/17 17:33 Room Air Labs Laboratory Tests Test 08/07/17 06:45 Hemoglobin 7.8 Hematocrit 27.4 Cardiovascular: Regular Lungs: Clear Abdomen: Non-distended, Non-tender Extremities: No edema A/P Assessment and Plan 61 year old male with anemia; colon mass visualized on colonoscopy -CT abd/pelvis -- shows three lesions low-density lesions concerning for metastatic disease -MRI abdomen ordered for today -Consult to Medical Oncology -Transfuse 2 units PRBCs today -Await biopsy results -Tentatively plan for RIGHT hemicolectomy on Thursday with possible port placement -Patient would like to be DCed home to travel to [facility] -Encouraged patient to stay to have full work up completed Attending Note - Dr. Fernando Long discussion with patient; MRI shows liver lesions consistent with benign cysts Second unit PRBC's to be infused Patient will stay for surgery; I explained that this is NOT outpatient or one day surgery. Explained risks, benefits, convalescence, alternatives; he vocalizes understanding. Surgical excision with RIGHT hemicolectomy is best course of action at this time. The exam, history, and the medical decision-making described in the above note were completed with the assistance of the mid-level provider. I reviewed and agree with the findings presented. I attest that I had a nary-zu-rady encounter with the patient on the same day, and personally performed and documented my assessment and findings in the medical record. Marietta Jonas/Bike Mechanic GRANTS ANALYST Aug 07, 2017 14:28 Kalen Fernando MD Aug 07, 2017 17:17
[2017-08-07 15:02] LABS: CARCINOEMBRYONIC ANTIGEN 1.6 NG/ML (0.2-5.0)
--- NOTE | 2017-08-07 16:30 | HHI.PR ---
Subjective Remarks I was called by the nurse patient wants to leave AMA I came to the room I discussed with him He is arguing that if we do not know what diagnosis he has so why we should keep him in the hospital I explained to him that the workup has to be systematic we did a colonoscopy obtain biopsy were awaiting on the result, surgery consulted as well as hematology oncology it is part of the staging . Patient continued to be insisting on leaving however he stayed and discussed with the surgeon nurse practitioner but he did not change his mind He agreed to stay until getting blood transfusion, and I will try again to talk to him Objective Vitals Vital Signs Date Time Temp Pulse Resp B/P (MAP) Pulse Ox O2 Delivery O2 Flow Rate FiO2 08/07/17 12:30 97.5 73 16 174/92 100 08/07/17 12:09 97.3 64 16 155/74 97 08/07/17 12:02 97.3 64 16 155/74 (101) 97 08/07/17 08:10 98.5 62 20 149/68 (95) 99 08/07/17 06:23 68 170/87 (114) 08/07/17 04:42 97.1 62 20 171/91 (117) 100 08/07/17 00:08 97.7 67 20 182/89 (120) 99 08/06/17 20:41 98.1 75 20 161/95 (117) 100 I/O 08/06/17 08/06/17 08/06/17 08/07/17 08/07/17 08/07/17 07:00 15:00 23:00 07:00 15:00 23:00 Intake Total 2420 ml 640 ml 2 ml 410 ml Balance 2420 ml 640 ml 2 ml 410 ml Intake Oral 2000 ml 240 ml Packed Cells 400 ml 400 ml Blood Product IV Normal Saline Flush 20 ml 2 ml 10 ml Other 400 ml # Voids 5 2 1 # Bowel Movements 7 1 Result Diagram: 08/07/17 0645 08/05/17 1330 Objective Remarks GENERAL: This is a well-nourished, well-developed patient, in no apparent distress. CARDIOVASCULAR: RRR, no gallops, or rubs. RESPIRATORY: Fair air entry bilaterally. No W, R, or R GASTROINTESTINAL: Abdomen soft, non-tender, nondistended. Positive bowel sounds MUSCULOSKELETAL: Extremities without clubbing, cyanosis, or edema. Pedal pulses appreciated NEUROLOGICAL: Awake and alert. Moves all extremity. Normal speech.no focal neurological deficit A/P Assessment and Plan 61-year-old white male admitted for GI bleed 08/07: EGD came back unremarkable, however colonoscopy revealed ascending colon mass, appreciate GI assistance, general surgery consulted they recommended hemicolectomy on Thursday, however patient is refusing and insisting on leaving AMA, he told me he wants to go visit his sister in [facility] and he has an airplane ticket already put. Shortness of breath -Exertional in origin, chest x-ray is negative Mostly due to severe acute anemia Ascending colon mass Revealed on colonoscopy, suspecting malignancy, workup in progress GS consulted recommended surgery on Thursday Hematology oncology consulted GI bleed -Hemoglobin 4.9, total order 3 units of blood to be transfused -Appreciate GI consultation, patient going for EGD today and colonoscopy Hypertension blood pressure 170/86 I will add Norvasc and monitor Annamarie Carrillo MD Aug 07, 2017 16:30
[2017-08-07] MEDS ORDERED: GADODIAMIDE PF 287 MG/ML 5 ML VIAL (for RAD MRI) IVCONTRAST ONE (16:43)
--- NOTE | 2017-08-07 16:47 | RADRPT ---
EXAM DATE: 08/07/2017 4:34 PM EDT AGE/SEX: 61 years / Male INDICATIONS: Newly diagnosed ascending colon mass presumed carcinoma. Abnormal abdomen CT demonstrati ng 3 nonspecific liver lesions. CLINICAL DATA: This is the patient's initial encounter. Patient reports that signs and symptoms have been present for 1 day and indicates a pain score of 0/10. MEDICAL/SURGICAL HISTORY: Hypertension. . Tibia surgery. COMPARISON: [facility], CT ABDOMEN & PELVIS W CONTRAST, 08/06/2017. . TECHNIQUE: Multiplanar, multisequence images of the abdomen were obtained prior to and following adm inistration of 19 ml Omniscan (gadodiamide) contrast as a single exam dose with dynamic multiphase te chnique. FINDINGS: Liver: The liver is homogeneous and normal in signal intensity. Parenchymal enhancement is normal mul tiple small lesions in the right lobe of the liver. The largest measures up to approximately 5 mm. Th ere are at least 4 additional small lesions. These are all similar in appearance and demonstrate high signal on the T2-weighted images and low signal on the T1-weighted images. These demonstrate no defi nite enhancement and appears cystic. There is no biliary ductal dilatation. Gallbladder: No gallstones seen. Decompressed. Spleen: The spleen is unremarkable. Pancreas: The pancreas is unremarkable. Adrenals: The adrenal glands appear normal. Kidneys: Both kidneys appear normal with symmetric nephrograms and no focal parenchymal abnormalities . There is no hydronephrosis on either side. Retroperitoneum: The aorta is unremarkable. There is no pathologic abdominal lymphadenopathy. The les ion in the ascending colon is visualized on the sagittal images. CONCLUSION: 1. Multiple small scattered lesions in the right lobe of liver with signal characteristics character istic of cysts. 2. Visualization of the known colonic lesion in the yamilex ascending colon. Electronically signed by: Kalen Montgomery MD 08/07/2017 4:46 PM EDT
[2017-08-07] MEDS ORDERED: amLODIPine BESYLATE 5 MG TAB PO ONE (17:30)
[2017-08-07 22:27] LABS: HEMATOCRIT 32.1 % (39.0-51.0); HEMOGLOBIN 9.4 GM/DL (13.0-17.0)
[2017-08-08] VITALS (7 sets, daily range): BP systolic 159–178; BP diastolic 80–129; PULSE 66–78; RESP 17–20; TEMP 97.6–98.1; O2SAT 97–100
[2017-08-08] MEDS: cloNIDine HCL 0.1 MG TAB PO PRN ×3 (00:16→21:00)
[2017-08-08] MEDS: PANTOPRAZOLE INJ 80 MG in SODIUM CHLORIDE 0.9% INJ 100 ML IV SCH ×3 (03:56→23:40)
[2017-08-08 07:24] LABS: AUTOMATED NEUTROPHIL # 7.2 TH/MM3 (1.8-7.7); BASOPHIL # 0.3 TH/MM3 (0-0.2); BASOPHIL % 2.4 % (0.0-2.0); EOSINOPHIL # 0.8 TH/MM3 (0-0.4); EOSINOPHIL % 7.4 % (0.0-4.0); HEMOGLOBIN 8.7 GM/DL (13.0-17.0); LYMPH % 12.7 % (9.0-44.0); LYMPHOCYTE # 1.4 TH/MM3 (1.0-4.8); MEAN CELL VOLUME 65.5 FL (80.0-100.0); MEAN CORPUSCULAR HEMOGLOBIN 19.8 PG (27.0-34.0); MEAN CORPUSCULAR HGB CONC 30.2 % (32.0-36.0); MEAN PLATELET VOLUME 8.8 FL (7.0-11.0); MONO % 10.8 % (0.0-8.0); MONOCYTE # 1.2 TH/MM3 (0-0.9); NEUT % 66.7 % (16.0-70.0); PLATELET COUNT 324 TH/MM3 (150-450); RED BLOOD COUNT 4.42 MIL/MM3 (4.50-5.90); RED CELL DISTRIBUTION WIDTH 31.8 % (11.6-17.2); WHITE BLOOD COUNT 10.8 TH/MM3 (4.0-11.0)
[2017-08-08 07:48] LABS: BICARBONATE 25.6 MEQ/L (21.0-32.0); CALCIUM 8.5 MG/DL (8.5-10.1); CREATININE 1.36 MG/DL (0.60-1.30)
[2017-08-08] MEDS: amLODIPine BESYLATE 5 MG TAB PO SCH ×2 (08:56→08:57)
[2017-08-08 11:26] LABS: ACANTHOCYTES OCC (NORMAL); KERATOCYTES OCC (NORMAL); OVALOCYTES 1+ (NORMAL); STOMATOCYTES 1+ (NORMAL)
[2017-08-08] MEDS ORDERED: DEXTROSE 50% IN WATER 50 ML VIAL(D50) IV PUSH PRN (12:15)
[2017-08-08] MEDS ORDERED: GLUCAGON 1 MG/ML VIAL OTHER PRN (12:15)
--- NOTE | 2017-08-08 12:49 | HHI.GIFU ---
Subjective Remarks Pt in bedside chair RN at bedside restarting IV Pt continues to stay that he will not be staying in the hospital No GI complaints at this time (Gilma Gr) Objective Vitals I&O Vital Signs Date Time Temp Pulse Resp B/P (MAP) Pulse Ox O2 Delivery O2 Flow Rate FiO2 08/08/17 08:00 97.6 71 17 178/90 (119) 97 08/08/17 05:00 98.0 66 20 163/85 (111) 98 08/08/17 00:24 97.8 71 20 171/95 (120) 98 08/07/17 21:13 97.8 83 20 159/91 (113) 95 08/07/17 17:50 97.8 65 16 195/95 98 08/07/17 17:34 98.2 71 17 189/103 99 08/07/17 16:00 97.7 67 20 179/100 (126) 98 I/O 08/07/17 08/07/17 08/07/17 08/08/17 08/08/17 08/08/17 07:00 15:00 23:00 07:00 15:00 23:00 Intake Total 482 ml 812 ml Balance 482 ml 812 ml Intake Oral 480 ml Packed Cells 800 ml Blood Product IV Normal Saline Flush 2 ml 12 ml # Voids 3 # Bowel Movements 1 Laboratory Laboratory Tests Test 08/07/17 14:17 08/07/17 22:06 08/08/17 05:52 Tumor Marker Alpha Fetoprotein 3.0 Carcinoembryonic Antigen 1.6 Hemoglobin 9.4 8.7 Hematocrit 32.1 29.0 White Blood Count 10.8 Red Blood Count 4.42 Mean Corpuscular Volume 65.5 Mean Corpuscular Hemoglobin 19.8 Mean Corpuscular Hemoglobin Concent 30.2 Red Cell Distribution Width 31.8 Platelet Count 324 Mean Platelet Volume 8.8 Neutrophils (%) (Auto) 66.7 Lymphocytes (%) (Auto) 12.7 Monocytes (%) (Auto) 10.8 Eosinophils (%) (Auto) 7.4 Basophils (%) (Auto) 2.4 Neutrophils # (Auto) 7.2 Lymphocytes # (Auto) 1.4 Monocytes # (Auto) 1.2 Eosinophils # (Auto) 0.8 Basophils # (Auto) 0.3 CBC Comment AUTO DIFF Differential Comment AUTO DIFF CONFIRMED Platelet Estimate NORMAL Platelet Morphology Comment ENLARGED Ovalocytes 1+ Stomatocytes 1+ Acanthocytes OCC Keratocytes OCC Blood Urea Nitrogen 12 Creatinine 1.36 Random Glucose 107 Calcium Level 8.5 Sodium Level 142 Potassium Level 3.5 Chloride Level 107 Carbon Dioxide Level 25.6 Anion Gap 9 Estimat Glomerular Filtration Rate 65 Imaging Last Impressions Abdomen MRI 08/07/17 0000 Signed Impressions: CONCLUSION: 1. Multiple small scattered lesions in the right lobe of liver with signal mary racteristics characteristic of cysts. 2. Visualization of the known colonic lesion in the yamilex ascending colon. Abdomen/Pelvis CT 08/06/17 0000 Signed Impressions: CONCLUSION: 1. There is a soft tissue mass in the mid ascending colon causing wall thicken ing and luminal narrowing. The appearance is characteristic of a primary colon malignancy. The lesion measures up to 5.1 x 4.0 cm. Adjacent mildly enlarged daly spicious lymph nodes are present in the mesentery measuring up to 11 mm. 2. There are 3 low-density lesions in the liver that are too small to characte emily, measuring up to 7 mm. Given the colon findings, this should ideally be fu rther characterized at some point with liver protocol MRI with and without intr avenous contrast. Chest X-Ray 08/05/17 1333 Signed Impressions: CONCLUSION: No acute cardiopulmonary disease. Physical Exam HEENT: Normocephalic; atraumatic CHEST: Even/unlabored CARDIAC: RRR ABDOMEN: Distended, soft, nontender, bowel sounds active EXTREMITIES: No clubbing, cyanosis, or edema. SKIN: Normal; no rash; no jaundice. CRITICAL CARE EDUCATOR: Alert and oriented times three. (Gilma Gr) Assessment and Plan Plan Assessment: - Anemia, microcytic, hypochromic Pt denies any obvious GIB, no GI symptoms at this time. Does report a 7 lb weight loss but states intentional, has been riding his bike. Complaint on arrival was dyspnea with exertion and dizziness. Last colonoscopy in 2014 and states normal exam. Has never had EGD Denies smoking. Occasional ETOH Family history unknown, pt adopted (08/07) Pt very angry states he is going to sign himself out and go home. He reports no one has given him any results yet. I discussed with him EGD/colonoscopy/and CT findings. GS also discussed these findings with pt last night. States no one is watching his house and that he is going to [facility] to see his sister. has ordered a MRI to further evaluate liver findings. Planning on potential surgery Thursday- lap assisted right hemicolectomy with/without port placement- they have discussed case with medical oncology H/H remains low currently 7.8/27.4- 2 U PRBCs ordered EGD --> Normal esophagus. Mild gastritis in the gastric antrum. Normal duodenal mucosa in the bulb and second portion of the duodenum. Colonoscopy --> Circumferential mass was found in the ascending colon, multiple biopsies. Internal and external hemorrhoids. CT abdomen and pelvis W IV contrast (08/06) There is a soft tissue mass in the mid ascending colon causing wall thickening and luminal narrowing. The appearance is characteristic of a primary colon malignancy. The lesion measures up to 5.1 x 4.0 cm. Adjacent mildly enlarged suspicious lymph nodes are present in the mesentery measuring up to 11 mm. There are 3 low-density lesions in the liver that are too small to characterize, measuring up to 7 mm. Given the colon findings, this should ideally be further characterized at some point with liver protocol MRI with and without intravenous contrast. MRI abdomen W and WO contrast (08/07) Multiple scattered lesions in the right lobe of liver with signal characteristic of cysts. Visualization of the known colonic lesions in the ascending colon. AFP-3.0 (08/08) Pt reports no changes over night. Has received total of 5 U PRBCs over the last three days. planning on possible surgery Thursday Colon biopsy still pending. Plan: General surgery following Oncology ahs been consulted Protonix PO EGD and colon biopsies pending Not much to add from a GI standpoint, we will sign off, reconsult as needed Have pt follow up with GI after DC Pt has been seen and examined by myself and Dr. Yu and this note is written on his behalf (Gilma Gr) Physician Comments Agree with the plan as above. Please notify us if needed . (Talha Yu MD) Gilma Gr Aug 08, 2017 12:49 Talha Yu MD Aug 08, 2017 16:46
--- NOTE | 2017-08-08 15:20 | HHI.PR ---
Subjective Remarks No acute complaint today however patient again requesting to be discharged prior to finishing workup and surgery He denies bloody bowel movement today Objective Vitals Vital Signs Date Time Temp Pulse Resp B/P (MAP) Pulse Ox O2 Delivery O2 Flow Rate FiO2 08/08/17 13:50 159/80 (106) 08/08/17 12:00 97.7 78 17 175/129 (144) 97 08/08/17 08:00 97.6 71 17 178/90 (119) 97 08/08/17 05:00 98.0 66 20 163/85 (111) 98 08/08/17 00:24 97.8 71 20 171/95 (120) 98 08/07/17 21:13 97.8 83 20 159/91 (113) 95 08/07/17 17:50 97.8 65 16 195/95 98 08/07/17 17:34 98.2 71 17 189/103 99 08/07/17 16:00 97.7 67 20 179/100 (126) 98 I/O 08/07/17 08/07/17 08/07/17 08/08/17 08/08/17 08/08/17 07:00 15:00 23:00 07:00 15:00 23:00 Intake Total 482 ml 812 ml Balance 482 ml 812 ml Intake Oral 480 ml Packed Cells 800 ml Blood Product IV Normal Saline Flush 2 ml 12 ml # Voids 3 # Bowel Movements 1 Result Diagram: 08/08/17 0552 08/08/17 0552 Objective Remarks GENERAL: This is a well-nourished, well-developed patient, in no apparent distress. CARDIOVASCULAR: RRR, no gallops, or rubs. RESPIRATORY: Fair air entry bilaterally. No W, R, or R GASTROINTESTINAL: Abdomen soft, non-tender, nondistended. Positive bowel sounds MUSCULOSKELETAL: Extremities without clubbing, cyanosis, or edema. Pedal pulses appreciated NEUROLOGICAL: Awake and alert. Moves all extremity. Normal speech.no focal neurological deficit A/P Assessment and Plan 61-year-old white male admitted for GI bleed 08/07: EGD came back unremarkable, however colonoscopy revealed ascending colon mass, appreciate GI assistance, general surgery consulted they recommended hemicolectomy on Thursday, however patient is refusing and insisting on leaving AMA, he told me he wants to go visit his sister in [facility] and he has an airplane ticket already put. 08/08: Plan for hemicolectomy on Thursday by Dr. Fernando, continue current care A/P: Shortness of breath -Exertional in origin, chest x-ray is negative Mostly due to severe acute anemia Ascending colon mass Revealed on colonoscopy, suspecting malignancy, workup in progress GS consulted recommended surgery on Thursday Hematology oncology consulted GI bleed -Hemoglobin 4.9, total order 3 units of blood to be transfused -Appreciate GI consultation, patient going for EGD today and colonoscopy Hypertension blood pressure 170/86 I will add Norvasc and monitor Annamarie Carrillo MD Aug 08, 2017 15:20
--- NOTE | 2017-08-08 16:17 | MB ---
cc: Gold Null MD DATE: 08/07/2017 REASON FOR CONSULTATION: Patient with findings of a large colon mass. 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 He has a history of hypertension. He presented to the emergency room with progressive fatigue and shortness of breath. He was also experiencing dark colored stools. On admission, the patient was found to have severe anemia with a hemoglobin of 4.9. The patient was transfused 2 units of packed red blood cells. A CT of the abdomen and pelvis was obtained, which revealed a soft tissue mass in the mid ascending colon causing luminal narrowing. The mass was approximately 5.1 x 4.0 cm and it was adjacent to small nodules in the periportal fat. There were at least 2 mildly enlarged lymph nodes that were adjacent to the mesentery. There were 3 low density lesions in the liver that were too small to characterize. These measured approximately 7 mm. They were all subcentimeter lesions. The patient has been evaluated by surgery and an abdominal MRI was also obtained, which showed that the multiple scattered lesions in the right lobe of the liver were more likely cysts. The patient is currently resting comfortably in the bed. He has undergone a colonoscopy and this shows a circumferential mass in the ascending colon. Multiple biopsies were performed and the biopsy results are pending. The patient states that he plans to go to [place] as soon as he gets discharged from the hospital. He appears somewhat frustrated that he is in the hospital. He states that he moved from [place] approximately 2 years ago. He has not had regular primary care physician followup. He states that he is quite active and he rides his motor bike. He denies having any nausea or vomiting. No fevers or chills. He denies any abdominal pain. No lower extremity edema or pain. He does not have any family history of colorectal cancer. SOCIAL HISTORY: He states that he does not smoke cigarettes. He drinks 1-2 alcoholic beverages every other day. He is single. He does not have any children. FAMILY HISTORY: Reviewed and is noncontributory to this admission. REVIEW OF SYSTEMS: A comprehensive review of systems was completed which is negative except as described in the HPI. PAST MEDICAL HISTORY: Hypertension. PAST SURGICAL HISTORY: History of vasectomy. MEDICATIONS: 1. Insulin sliding scale. 2. Amlodipine 10 mg p.o. daily. 3. Clonidine 0.1 mg p.o. q.6 hours p.r.n. 4. Pantoprazole. ALLERGIES: NO KNOWN DRUG ALLERGIES. PHYSICAL EXAMINATION: VITAL SIGNS: Blood pressure is 189/103, pulse is in the 70s, temperature is 98.2. GENERAL: Well-developed, well-nourished male, in no apparent distress. HEENT: Pupils are equal, round, reactive to light. EOMI. No thrush. No oral lesions. NECK: Supple. No JVD. No bruits. No lymphadenopathy. CHEST: Clear to auscultation bilaterally. CARDIAC: S1, S2. Regular rate and rhythm. ABDOMEN: Soft, nontender and nondistended. Bowel sounds are present. EXTREMITIES: Without any edema, erythema or cyanosis. SKIN: Without any petechiae, lesion or bruises. NEUROLOGIC: No focal deficits. PSYCHIATRIC: Mood and affect is appropriate. LABORATORY DATA: WBC 10.9, hemoglobin 7.6, platelet count of 380. Serum chemistries show sodium of 140, potassium 3.8, chloride 107, anion gap is 9, BUN is 10, creatinine is 1.26, calcium is 8.8, magnesium is 2.2. BNP is 84. CEA is 1.6. IMAGING STUDIES: Reviewed in the EMR. ASSESSMENT AND PLAN: This is a 61-year-old male with a history of hypertension, who presents to the emergency room with progressive dyspnea and fatigue and was found to be severely anemic. He received packed red blood cell transfusions. He underwent CT-guided biopsy of the abdomen and pelvis, which revealed a large colon mass. 1. Ascending colon mass with wall thickening and luminal narrowing. This measures approximately 5.1 x 4 cm. This is highly suspicious for colon adenocarcinoma. I have reviewed the MRI as well as the CT imaging. The lesions in the liver appeared to be cysts. I would recommend resection of the mass. I have discussed this with the patient. I explained to the patient that once the surgery is completed, I will evaluate the pathology results. If he has some lymph node-positive disease then most likely he will require adjuvant chemotherapy. I did explain to him that the first step is to have the mass resected which involve colectomy. 2. Severe anemia with a hemoglobin of 4.9 on admission, his MCV was very low at 55.8. He has received 2 units of packed red blood cells. His hemoglobin is 8.7, MCV is 55.5. He is likely iron deficient from chronic bleeding from the colon mass. We will transfuse to keep his hemoglobin greater than 8. We will check his serum iron levels; however, these results may not be reliable because of recent packed red blood cell transfusion. He would likely need iron infusions in the future. 3. History of hypertension. All questions asked by the patient were answered. I have discussed the results of the MRI and the CT scan with the patient. Thank you for allowing me to participate in the care of this patient. I will continue to follow this patient along. MD PORSCHE Beck/MARSHALL , 01:18 PM , 04:15 PM
[2017-08-08] MEDS: INSULIN ASPART SUPPLEMENTAL SCALE SQ SCH ×2 (17:08→21:00)
[2017-08-09 00:36] VITALS: BP 173/86; PULSE 69; RESP 18; TEMP 97.8; O2SAT 100
[2017-08-09 04:52] VITALS: BP 165/88; PULSE 66; RESP 20; TEMP 97.4; O2SAT 99
[2017-08-09] MEDS: cloNIDine HCL 0.1 MG TAB PO PRN ×2 (05:17→17:10)
[2017-08-09 08:00] VITALS: BP 154/83; PULSE 68; RESP 18; TEMP 98.3; O2SAT 98
[2017-08-09] MEDS: INSULIN ASPART SUPPLEMENTAL SCALE SQ SCH ×4 (08:00→21:00)
[2017-08-09 08:14] LABS: HEMATOCRIT 30.3 % (39.0-51.0)
[2017-08-09] MEDS: amLODIPine BESYLATE 5 MG TAB PO SCH (09:22)
[2017-08-09] MEDS: PANTOPRAZOLE INJ 80 MG in SODIUM CHLORIDE 0.9% INJ 100 ML IV SCH ×2 (09:22→17:12)
[2017-08-09 10:09] LABS: HEMOGLOBIN A1C 5.3 % (4.3-6.0)
--- NOTE | 2017-08-09 11:51 | HHI.PR ---
cc: Stephen Payne MD Subjective Subjective Notes on clear diet tolerating, mild pain, hh stable Objective Vitals/I&O Vital Signs Date Time Temp Pulse Resp B/P (MAP) Pulse Ox O2 Delivery O2 Flow Rate FiO2 08/09/17 08:00 98.3 68 18 154/83 (106) 98 08/05/17 17:33 Room Air Labs Laboratory Tests Test 08/09/17 05:33 Hemoglobin 9.0 Hematocrit 30.3 Cardiovascular: Regular Lungs: Clear Abdomen: Other (soft mild ttp) A/P Assessment and Plan 61 year old male with anemia; colon mass visualized on colonoscopy, HH stable -MRI abdomen neg for metastic disease -Consult to Medical Oncology -Await biopsy results- still pending - I discussed with patient the importance of surgery and reviewed scans. Patient understands and agrees. He will plan for surgery tomorrow clear diet today, NPO after Stephen Pablo MD Aug 09, 2017 11:51
[2017-08-09 12:00] VITALS: BP 152/86; PULSE 71; RESP 18; TEMP 97.6; O2SAT 98
[2017-08-09 13:03] LABS: BICARBONATE 26.3 MEQ/L (21.0-32.0); CREATININE 1.04 MG/DL (0.60-1.30); MAGNESIUM 2.2 MG/DL (1.5-2.5); PHOSPHORUS 2.6 MG/DL (2.5-4.9)
--- NOTE | 2017-08-09 13:39 | HHI.PR ---
Subjective Remarks No acute issue going on today Plan for hemicolectomy tomorrow with port placement patient refused to sign for the port placement but after discussing that with him he eventually agreed Objective Vitals Vital Signs Date Time Temp Pulse Resp B/P (MAP) Pulse Ox O2 Delivery O2 Flow Rate FiO2 08/09/17 08:00 98.3 68 18 154/83 (106) 98 08/09/17 04:52 97.4 66 20 165/88 (113) 99 08/09/17 00:36 97.8 69 18 173/86 (115) 100 08/08/17 20:05 98.1 72 18 170/86 (114) 99 08/08/17 16:00 97.9 68 17 165/81 (109) 100 08/08/17 13:50 159/80 (106) I/O 08/08/17 08/08/17 08/08/17 08/09/17 08/09/17 08/09/17 07:00 15:00 23:00 07:00 15:00 23:00 # Voids 5 # Bowel Movements 1 Result Diagram: 08/09/17 0533 08/09/17 1144 Objective Remarks GENERAL: This is a well-nourished, well-developed patient, in no apparent distress. CARDIOVASCULAR: RRR, no gallops, or rubs. RESPIRATORY: Fair air entry bilaterally. No W, R, or R GASTROINTESTINAL: Abdomen soft, non-tender, nondistended. Positive bowel sounds MUSCULOSKELETAL: Extremities without clubbing, cyanosis, or edema. Pedal pulses appreciated NEUROLOGICAL: Awake and alert. Moves all extremity. Normal speech.no focal neurological deficit A/P Assessment and Plan 61-year-old white male admitted for GI bleed 08/07: EGD came back unremarkable, however colonoscopy revealed ascending colon mass, appreciate GI assistance, general surgery consulted they recommended hemicolectomy on Thursday, however patient is refusing and insisting on leaving AMA, he told me he wants to go visit his sister in [facility] and he has an airplane ticket already put. 08/08: Plan for hemicolectomy on Thursday by Dr. Fernando, continue current care 08/09: Patient reported bowel movement today without blood, plan for hemicolectomy tomorrow with port placement by Dr. Fernando, he previously requested 2 units of PRBC to be on hold I ordered those, discussed with the nurse, and with the patient,A1c is 5.3 MARILEE with creatinine 1.36>> avoid nephrotoxin, start IV fluid repeat BMP in a.m. A/P: Shortness of breath -Exertional in origin, chest x-ray is negative Mostly due to severe acute anemia Ascending colon mass Revealed on colonoscopy, suspecting malignancy, workup in progress GS consulted recommended surgery on Thursday Hematology oncology consulted GI bleed -Hemoglobin 4.9, total order 3 units of blood to be transfused -Appreciate GI consultation, patient going for EGD today and colonoscopy Hypertension blood pressure 170/86 I will add Norvasc and monitor Annamarie Carrillo MD Aug 09, 2017 13:39
[2017-08-09] MEDS ORDERED: SODIUM CHLORID 0.9% 500 ML IV PRN (14:00)
[2017-08-09] MEDS ORDERED: POVIDONE IODINE 5% (ANTISEPSIS KIT) 4 APPLICATIONS EACH NARE PRN (14:00)
[2017-08-09] MEDS ORDERED: DO NOT ADM ANY ANTICOAGULANT DRUGS PRN (14:00)
[2017-08-09] MEDS ORDERED: CHLORHEXIDINE GLUCONATE 2 % 1 PACK (2 CLOTHS) TOPICAL PRN (14:00)
[2017-08-09] MEDS ORDERED: METOPROLOL TARTRATE 25 MG TAB PO PRN (14:00)
[2017-08-09] MEDS ORDERED: LACTATED RINGER'S 1000 ML IV PRN (14:00)
[2017-08-09] MEDS: cloNIDine HCL 0.1 MG TAB PO SCH ×2 (14:05→21:27)
[2017-08-09 14:33] LABS: BILIRUBIN, URINE NEG (NEG); BLOOD, URINE NEG (NEG); GLUCOSE,URINE NEG (NEG); HYALINE CAST, URINE 2 /lpf (RARE); KETONE, URINE NEG (NEG); NITRITE,URINE NEG (NEG); PH, URINE 7.5 (5.0-8.5); SQUAMOUS EPITHELIAL CELL URINE <1 /hpf (0-5); URINE COLOR LIGHT-YELLOW (YELLW/STRAW); URINE LEUKOCYTE ESTERASE NEG (NEG)
[2017-08-09 16:00] VITALS: BP 173/83; PULSE 61; RESP 18; TEMP 97.6; O2SAT 100
[2017-08-09 21:45] VITALS: BP 155/87; PULSE 71; RESP 16; TEMP 97.9; O2SAT 98
[2017-08-10 00:20] VITALS: BP 140/80; PULSE 69; RESP 17; TEMP 98; O2SAT 99
[2017-08-10 05:15] VITALS: BP 142/70; PULSE 103; RESP 17; TEMP 98; O2SAT 99
[2017-08-10] MEDS: cloNIDine HCL 0.1 MG TAB PO SCH ×4 (05:27→22:53)
[2017-08-10] MEDS: PANTOPRAZOLE INJ 80 MG in SODIUM CHLORIDE 0.9% INJ 100 ML IV SCH ×2 (05:27→15:01)
[2017-08-10] MEDS ORDERED: BUPIVACAINE/EPINEPHRINE 0.5% PF 10 ML VIAL ONE ×2 (06:59→07:01)
[2017-08-10] MEDS ORDERED: ceFAZolin INJ 1,000 MG VIAL ONE ×2 (06:59→08:17)
[2017-08-10] MEDS ORDERED: HEPARIN SODIUM - IV 10,000 UNITS/10 ML VIAL ONE (07:00)
[2017-08-10] MEDS ORDERED: SODIUM CHLORIDE 0.9% INJ 0 ML ONE (07:00)
[2017-08-10] MEDS ORDERED: ACETAMINOPHEN 1000 MG/100 ML 100 ML IV ONE (07:51)
[2017-08-10] MEDS: INSULIN ASPART SUPPLEMENTAL SCALE SQ SCH ×4 (08:13→21:00)
[2017-08-10] MEDS: amLODIPine BESYLATE 5 MG TAB PO SCH (08:14)
[2017-08-10] MEDS ORDERED: metroNIDAZOLE 500 MG INJ 100 ML IV ONE (08:17)
[2017-08-10] MEDS ORDERED: diphenhydrAMINE HCL 50 MG/ML VIAL ONE (08:59)
--- NOTE | 2017-08-10 10:53 | HHI.PR ---
Objective Vitals Vital Signs Date Time Temp Pulse Resp B/P (MAP) Pulse Ox O2 Delivery O2 Flow Rate FiO2 08/10/17 05:15 98.0 103 17 142/70 (94) 99 08/10/17 00:20 98.0 69 17 140/80 (100) 99 08/09/17 21:45 97.9 71 16 155/87 (109) 98 08/09/17 16:00 97.6 61 18 173/83 (113) 100 08/09/17 12:00 97.6 71 18 152/86 (108) 98 I/O 08/09/17 08/09/17 08/09/17 08/10/17 08/10/17 08/10/17 07:00 15:00 23:00 07:00 15:00 23:00 Intake Total 100 ml 800 ml 1000 ml 2500 ml Output Total 150 ml Balance 100 ml 800 ml 1000 ml 2350 ml Intake Oral 800 ml 1000 ml IV Total 100 ml Other 2500 ml Output Urine Total 100 ml Estimated Blood Loss 50 ml # Voids 5 5 4 # Bowel Movements 1 4 0 Result Diagram: 08/09/17 0533 08/09/17 1144 Objective Remarks GENERAL: This is a well-nourished, well-developed patient, in no apparent distress. CARDIOVASCULAR: RRR, no gallops, or rubs. RESPIRATORY: Fair air entry bilaterally. No W, R, or R GASTROINTESTINAL: Abdomen soft, non-tender, nondistended. Positive bowel sounds MUSCULOSKELETAL: Extremities without clubbing, cyanosis, or edema. Pedal pulses appreciated NEUROLOGICAL: Awake and alert. Moves all extremity. Normal speech.no focal neurological deficit A/P Assessment and Plan 61-year-old white male admitted for GI bleed 08/07: EGD came back unremarkable, however colonoscopy revealed ascending colon mass, appreciate GI assistance, general surgery consulted they recommended hemicolectomy on Thursday, however patient is refusing and insisting on leaving AMA, he told me he wants to go visit his sister in [facility] and he has an airplane ticket already put. 08/08: Plan for hemicolectomy on Thursday by Dr. Fernando, continue current care 08/09: Patient reported bowel movement today without blood, plan for hemicolectomy tomorrow with port placement by Dr. Fernando, he previously requested 2 units of PRBC to be on hold I ordered those, discussed with the nurse, and with the patient,A1c is 5.3 MARILEE with creatinine 1.36>> avoid nephrotoxin, start IV fluid repeat BMP in a.m. A/P: Shortness of breath -Exertional in origin, chest x-ray is negative Mostly due to severe acute anemia Ascending colon mass Revealed on colonoscopy, suspecting malignancy, workup in progress GS consulted recommended surgery on Thursday Hematology oncology consulted GI bleed -Hemoglobin 4.9, total order 3 units of blood to be transfused -Appreciate GI consultation, patient going for EGD today and colonoscopy Hypertension blood pressure 170/86 I will add Norvasc and monitor Annamarie Carrillo MD Aug 10, 2017 10:53
[2017-08-10] MEDS ORDERED: DO NOT ADM ANY ANTICOAGULANT DRUGS PRN (10:57)
--- NOTE | 2017-08-10 11:09 | HHI.PR ---
cc: Kalen Fernando MD Immediate Post Op Note Procedure Date: Aug 10, 2017 Pre Op Diagnosis: Suspicious lesion ascending colon Post Op Diagnosis: Carcinoma ascending colon Surgeon: Kalen Fernando Handbag Designer(s): Mekhi Avendano CFA Procedure: Laparoscopic assisted RIGHT hemicolectomy Findings: Lesion in ascending colon; no obvious adenopathy Complications: None Specimen(s) removed: RIGHT colon to pathology Estimated blood loss: 50 ml Anesthesia: General Drains: None IVF (2500 ml) Patient to: PACU Patient Condition: Good Date/Time of Procedure: SEE SURGICAL CARE RECORD Kalen Fernando MD Aug 10, 2017 11:09
[2017-08-10] MEDS ORDERED: NALOXONE HCL 0.4 MG/ML AMP IV PUSH PRN (11:15)
[2017-08-10] MEDS ORDERED: MORPHINE SULFATE 30 MG/30 ML PCA IV SCH (11:15)
[2017-08-10] MEDS ORDERED: diphenhydrAMINE HCL 50 MG/ML VIAL IV PUSH PRN (11:15)
[2017-08-10] MEDS ORDERED: ACETAMINOPHEN 1000 MG/100 ML 100 ML IV SCH (11:15)
[2017-08-10 11:33] LABS: AUTOMATED NEUTROPHIL # 12.2 TH/MM3 (1.8-7.7); BASOPHIL # 0.2 TH/MM3 (0-0.2); BASOPHIL % 1.1 % (0.0-2.0); EOSINOPHIL # 0.2 TH/MM3 (0-0.4); EOSINOPHIL % 1.7 % (0.0-4.0); HEMOGLOBIN 8.1 GM/DL (13.0-17.0); LYMPH % 5.2 % (9.0-44.0); LYMPHOCYTE # 0.7 TH/MM3 (1.0-4.8); MEAN CELL VOLUME 66.4 FL (80.0-100.0); MEAN CORPUSCULAR HEMOGLOBIN 19.1 PG (27.0-34.0); MEAN PLATELET VOLUME 8.7 FL (7.0-11.0); MONO % 5.4 % (0.0-8.0); MONOCYTE # 0.8 TH/MM3 (0-0.9); NEUT % 86.6 % (16.0-70.0); PLATELET COUNT 363 TH/MM3 (150-450); RED BLOOD COUNT 4.22 MIL/MM3 (4.50-5.90); RED CELL DISTRIBUTION WIDTH 32.8 % (11.6-17.2); WHITE BLOOD COUNT 14.1 TH/MM3 (4.0-11.0)
[2017-08-10 11:34] LABS: MEAN CORPUSCULAR HGB CONC 28.8 % (32.0-36.0)
[2017-08-10] MEDS ORDERED: ONDANSETRON HCL 4 MG/2 ML VIAL IV PUSH ONE (12:00)
[2017-08-10] MEDS ORDERED: NORMOSOL R INJ 3,000 ML IV ONE (12:00)
[2017-08-10] MEDS ORDERED: PROPOFOL 200 MG/20 ML AMP IV ONE (12:00)
[2017-08-10] MEDS ORDERED: LIDOCAINE HCL 1% PF 5 ML SYRINGE OTHER ONE (12:00)
[2017-08-10] MEDS ORDERED: KETOROLAC TROMETHAMINE 30 MG/ML (IVP) VIAL IV PUSH ONE (12:00)
[2017-08-10] MEDS ORDERED: ROCURONIUM INJ 50 MG/5 ML SYRINGE IV PUSH ONE (12:00)
[2017-08-10] MEDS ORDERED: GLYCOPYRROLATE 1 MG/5 ML SYRINGE IV PUSH ONE (12:00)
[2017-08-10] MEDS ORDERED: ePHEDrine/NS 25 MG/5 ML SYRINGE IV ONE (12:00)
[2017-08-10] MEDS ORDERED: NEOSTIGMINE 5 MG/5 ML SYRINGE IV PUSH ONE (12:00)
[2017-08-10] MEDS ORDERED: PHENYLEPH/NS 1000 MCG/10 ML SYR IV ONE (12:00)
[2017-08-10 12:22] LABS: CALCIUM 7.1 MG/DL (8.5-10.1); CREATININE 0.79 MG/DL (0.60-1.30)
[2017-08-10 12:43] LABS: CALCIUM-PROTEIN CORRECTED 8.5 MG/DL (8.5-10.1); TOTAL PROTEIN 4.5 GM/DL (6.4-8.2)
[2017-08-10 12:45] LABS: ACANTHOCYTES OCC (NORMAL); KERATOCYTES OCC (NORMAL)
[2017-08-10 12:46] LABS: TARGET CELLS 1+ (NORMAL)
--- NOTE | 2017-08-10 12:52 | HHI.PR ---
Subjective Remarks Patient is going for right hemicolectomy today has been stable overnight no acute issue No fever no short of breath Objective Vitals Vital Signs Date Time Temp Pulse Resp B/P (MAP) Pulse Ox O2 Delivery O2 Flow Rate FiO2 08/10/17 12:00 56 19 112/57 (75) 94 Room Air 08/10/17 11:56 18 08/10/17 11:45 61 19 113/59 (77) 93 Room Air 08/10/17 11:30 63 17 113/56 (75) 94 Room Air 08/10/17 11:15 68 17 109/55 (73) 99 Room Air 08/10/17 10:56 96.8 90 17 118/64 (82) 94 Room Air 08/10/17 05:15 98.0 103 17 142/70 (94) 99 08/10/17 00:20 98.0 69 17 140/80 (100) 99 08/09/17 21:45 97.9 71 16 155/87 (109) 98 08/09/17 16:00 97.6 61 18 173/83 (113) 100 I/O 08/09/17 08/09/17 08/09/17 08/10/17 08/10/17 08/10/17 07:00 15:00 23:00 07:00 15:00 23:00 Intake Total 100 ml 800 ml 1000 ml 2700 ml Output Total 250 ml Balance 100 ml 800 ml 1000 ml 2450 ml Intake Oral 800 ml 1000 ml IV Total 100 ml 200 ml Other 2500 ml Output Urine Total 200 ml Estimated Blood Loss 50 ml # Voids 5 5 4 # Bowel Movements 1 4 0 Result Diagram: 08/10/17 1117 08/10/17 1117 Objective Remarks GENERAL: This is a well-nourished, well-developed patient, in no apparent distress. CARDIOVASCULAR: RRR, no gallops, or rubs. RESPIRATORY: Fair air entry bilaterally. No W, R, or R GASTROINTESTINAL: Abdomen soft, non-tender, nondistended. Positive bowel sounds MUSCULOSKELETAL: Extremities without clubbing, cyanosis, or edema. Pedal pulses appreciated NEUROLOGICAL: Awake and alert. Moves all extremity. Normal speech.no focal neurological deficit A/P Assessment and Plan 61-year-old white male admitted for GI bleed 08/07: EGD came back unremarkable, however colonoscopy revealed ascending colon mass, appreciate GI assistance, general surgery consulted they recommended hemicolectomy on Thursday, however patient is refusing and insisting on leaving AMA, he told me he wants to go visit his sister in [facility] and he has an airplane ticket already put. 08/08: Plan for hemicolectomy on Thursday by Dr. Fernando, continue current care 08/09: Patient reported bowel movement today without blood, plan for hemicolectomy tomorrow with port placement by Dr. Fernando, he previously requested 2 units of PRBC to be on hold I ordered those, discussed with the nurse, and with the patient,A1c is 5.3 MARILEE with creatinine 1.36>> avoid nephrotoxin, start IV fluid repeat BMP in a.m. 08/10: Patient doing well today, MARILEE resolved creatinine 0.7 today, going for right hemicolectomy by Dr. Fernando today Addendum 12:05 : I just D/W surgery nurse practitioner she informed me that the patient had the surgery and everything has been going well A/P: Shortness of breath -Exertional in origin, chest x-ray is negative Mostly due to severe acute anemia Ascending colon mass Revealed on colonoscopy, suspecting malignancy, workup in progress GS consulted recommended surgery on Thursday Hematology oncology consulted GI bleed -Hemoglobin 4.9, total order 3 units of blood to be transfused -Appreciate GI consultation, patient going for EGD today and colonoscopy Hypertension blood pressure 170/86 I will add Norvasc and monitor Annamarie Carrillo MD Aug 10, 2017 12:52
[2017-08-10 12:58] VITALS: BP 110/55; PULSE 56; RESP 18; TEMP 97.3; O2SAT 94
[2017-08-10] MEDS: PCA - TOTAL MG MORPHINE DELIVERED PER SHIFT SCH ×2 (15:00→22:00)
[2017-08-10] MEDS: ACETAMINOPHEN 1000 MG/100 ML 100 ML IV SCH ×2 (15:00→20:07)
--- NOTE | 2017-08-10 15:46 | MP ---
cc: Kalen Fernando MD DATE OF OPERATION: 08/10/2017 DATE OF PROCEDURE: 08/10/2017. PROCEDURE: Laparoscopic-assisted right hemicolectomy. PREOPERATIVE DIAGNOSIS: Suspicious lesion ascending colon. POSTOPERATIVE DIAGNOSIS: Carcinoma ascending colon. ANESTHESIA: General endotracheal. SURGEON: MD Abdullahi ESTIMATED BLOOD LOSS: 50 mL FLUIDS: 2500 mL crystalloid. PRIOR AUTHORIZATION TECHNICIAN: Merle Avendano CFA. COMPLICATIONS: None. DRAINS: None. SPECIMENS: Right colon to pathology. FINDINGS: Small lymph nodes in the mesentery. No bulky jose armando disease noted. PROCEDURE IN DETAIL: The patient was marked in the holding area on the right side and confirmed by the patient. He was taken to the operating room, and placed on the operating table in the supine position. After an adequate level of general endotracheal anesthesia was achieved, the abdomen was shaved, prepped and draped. Timeout was taken confirming the correct patient, site, and procedure to be performed. Incision was made just above the umbilicus and a 5 mm trocar was inserted and under low insufflation, entered the abdominal cavity under direct vision uneventfully. Two additional 5 mm trocars were then placed with one below the umbilicus and the other in the epigastrium. Both entered the abdominal cavity under direct vision uneventfully. The upper trocar was placed so that it entered to the right of the falciform ligament. The cecum was then rotated medially and, while grasping the appendix, was freed up from the retroperitoneum. The right ureter was identified and kept out of the area of dissection. Dissection was carried back to the distal ileum such that substantial intestine was freed up. Dissection was carried out up to the hepatic flexure where careful dissection with the harmonic scalpel allowed for takedown of the hepatic flexure. The colon was freed up to the mid-transverse colon and allowed for complete mobilization. The mesentery was thinned out and utilizing the harmonic scalpel was divided back to the level of the right colic vessels. At this point, insufflation was discontinued and the ports were removed. The ascending colon was grasped with a grasping forceps and this was left in place during desufflation. A transverse incision was made in the right mid-abdomen just above the umbilicus. Dissection was carried down through the anterior fascia. Attempt was made to separate the muscle fibers, but these needed to be divided to allow for adequate exposure. The posterior fascia was opened with scissors. The peritoneal cavity was entered under direct vision uneventfully. At this point, a wound protector was inserted and the bowel was exteriorized. The ascending colon was noted to have a very hard circumferential lesion in the mid-ascending colon. The right colic vessels were ligated back near the origin. Multiple lymph nodes were taken, but did not appear to be grossly involved with tumor. The distal ileum was taken as well. Larger vessels were clamped and ligated with 2-0 silk suture and divided. Smaller vessels were divided with the harmonic scalpel. The distal ileum was divided with the with the DAO stapler as was the mid-transverse colon. Care was taken to preserve the middle colic vessel. The specimen was passed off the table. The ileocolostomy was created by making an opening in the end of the staple line. A DAO-75 stapler was fired down the antimesenteric border of the small bowel and transverse colon. Staple line was examined and seen to be clean and dry. The anastomosis was reinforced with a 3-0 silk suture. At this point, with the staple line clean and dry, a TA 60 type stapler was fired across the ileocolostomy. The mesenteric defect was closed with [id number] 3-0 silk suture. The bowel was allowed to retract back into the abdominal cavity. The wound protector was removed and the fascia closed in 2 layers with a running #1 PDS suture. The remaining local anesthetic was injected into the incision. The skin was closed with interrupted 3-0 Vicryl suture and 5-0 PDS in a running subcuticular fashion. The wound was dressed with Steri-Strips. 4-0 Vicryl was used to close the skin at the three trocar sites. These were dressed with Steri-Strips as well. An abdominal binder was applied. The patient was extubated and taken back to the recovery room in stable condition. Sponge, needle and instrument counts were reported to be correct x2. MD KIARRA Vizcaino/JULIO CÉSAR , 03:18 PM , 03:45 PM
[2017-08-10 16:00] VITALS: BP 130/64; PULSE 72; RESP 17; TEMP 97.6; O2SAT 97
[2017-08-10 17:11] LABS: BICARBONATE 25.9 MEQ/L (21.0-32.0); CALCIUM 8.1 MG/DL (8.5-10.1); CREATININE 1.18 MG/DL (0.60-1.30)
[2017-08-10] MEDS ORDERED: POTASSIUM CHLOR 20 MEQ PREMIX 100 ML IV ONE (18:45)
[2017-08-10 20:00] VITALS: BP 174/86; PULSE 75; RESP 20; TEMP 97.9; O2SAT 96
[2017-08-11] VITALS: BP 136/70; PULSE 78; RESP 20; TEMP 97.7; O2SAT 95
[2017-08-11] MEDS: PANTOPRAZOLE INJ 80 MG in SODIUM CHLORIDE 0.9% INJ 100 ML IV SCH ×2 (01:06→08:30)
[2017-08-11] MEDS: ACETAMINOPHEN 1000 MG/100 ML 100 ML IV SCH ×4 (03:32→20:38)
[2017-08-11 04:00] VITALS: BP 146/71; PULSE 82; RESP 18; TEMP 97.7; O2SAT 95
[2017-08-11] MEDS: cloNIDine HCL 0.1 MG TAB PO SCH ×3 (05:32→22:21)
[2017-08-11] MEDS: PCA - TOTAL MG MORPHINE DELIVERED PER SHIFT SCH ×3 (06:00→22:00)
[2017-08-11 08:00] VITALS: BP 161/81; PULSE 78; RESP 17; TEMP 97.3; O2SAT 97
[2017-08-11] MEDS: INSULIN ASPART SUPPLEMENTAL SCALE SQ SCH ×4 (08:00→20:38)
[2017-08-11 08:18] LABS: AUTOMATED NEUTROPHIL # 10.1 TH/MM3 (1.8-7.7); BASOPHIL # 0.1 TH/MM3 (0-0.2); BASOPHIL % 1.1 % (0.0-2.0); EOSINOPHIL # 0.6 TH/MM3 (0-0.4); EOSINOPHIL % 4.7 % (0.0-4.0); HEMATOCRIT 26.2 % (39.0-51.0); HEMOGLOBIN 7.5 GM/DL (13.0-17.0); LYMPH % 7.6 % (9.0-44.0); MEAN CELL VOLUME 67.1 FL (80.0-100.0); MEAN CORPUSCULAR HEMOGLOBIN 19.2 PG (27.0-34.0); MEAN PLATELET VOLUME 8.8 FL (7.0-11.0); MONO % 8.1 % (0.0-8.0); NEUT % 78.5 % (16.0-70.0); PLATELET COUNT 329 TH/MM3 (150-450); RED BLOOD COUNT 3.91 MIL/MM3 (4.50-5.90); RED CELL DISTRIBUTION WIDTH 32.7 % (11.6-17.2); WHITE BLOOD COUNT 12.9 TH/MM3 (4.0-11.0)
[2017-08-11 08:23] LABS: MEAN CORPUSCULAR HGB CONC 28.6 % (32.0-36.0)
[2017-08-11] MEDS: amLODIPine BESYLATE 5 MG TAB PO SCH (08:30)
[2017-08-11 08:46] LABS: BICARBONATE 26.4 MEQ/L (21.0-32.0); CALCIUM 7.9 MG/DL (8.5-10.1); CREATININE 1.17 MG/DL (0.60-1.30)
--- NOTE | 2017-08-11 09:28 | PD.ONC.PN ---
Subjective Subjective Remarks Afebrile overnight. Patient resting in room. hoping to get out of the hospital soon so he can go on vacation. states he will be out by thursday and plans to go to [facility]. Objective Data Date Time Temp Pulse Resp B/P (MAP) Pulse Ox O2 Delivery O2 Flow Rate FiO2 08/11/17 08:00 97.3 78 17 161/81 (107) 97 08/11/17 06:00 20 08/11/17 04:00 97.7 82 18 146/71 (96) 95 08/11/17 00:00 97.7 78 20 136/70 (92) 95 08/10/17 22:00 20 08/10/17 20:00 97.9 75 20 174/86 (115) 96 08/10/17 16:00 97.6 72 17 130/64 (86) 97 08/10/17 12:58 97.3 56 18 110/55 (73) 94 08/10/17 12:30 97.7 60 19 104/57 (73) 95 Room Air 08/10/17 12:15 58 19 111/55 (73) 94 Room Air 08/10/17 12:00 56 19 112/57 (75) 94 Room Air 08/10/17 11:56 18 08/10/17 11:45 61 19 113/59 (77) 93 Room Air 08/10/17 11:30 63 17 113/56 (75) 94 Room Air 08/10/17 11:15 68 17 109/55 (73) 99 Room Air 08/10/17 10:56 96.8 90 17 118/64 (82) 94 Room Air 08/11/17 08/11/17 08/11/17 06:59 14:59 22:59 Intake Total 460 ml Output Total 250 ml Balance 210 ml Result Diagram: 08/11/17 0721 08/11/17720 Laboratory Results Laboratory Tests Test 08/10/17 11:17 08/10/17 16:25 08/11/17 07:21 White Blood Count 14.1 TH/MM3 12.9 TH/MM3 Red Blood Count 4.22 MIL/MM3 3.91 MIL/MM3 Hemoglobin 8.1 GM/DL 7.5 GM/DL Hematocrit 28.0 % 26.2 % Mean Corpuscular Volume 66.4 FL 67.1 FL Mean Corpuscular Hemoglobin 19.1 PG 19.2 PG Mean Corpuscular Hemoglobin Concent 28.8 % 28.6 % Red Cell Distribution Width 32.8 % 32.7 % Platelet Count 363 TH/MM3 329 TH/MM3 Mean Platelet Volume 8.7 FL 8.8 FL Neutrophils (%) (Auto) 86.6 % 78.5 % Lymphocytes (%) (Auto) 5.2 % 7.6 % Monocytes (%) (Auto) 5.4 % 8.1 % Eosinophils (%) (Auto) 1.7 % 4.7 % Basophils (%) (Auto) 1.1 % 1.1 % Neutrophils # (Auto) 12.2 TH/MM3 10.1 TH/MM3 Lymphocytes # (Auto) 0.7 TH/MM3 1.0 TH/MM3 Monocytes # (Auto) 0.8 TH/MM3 1.0 TH/MM3 Eosinophils # (Auto) 0.2 TH/MM3 0.6 TH/MM3 Basophils # (Auto) 0.2 TH/MM3 0.1 TH/MM3 CBC Comment AUTO DIFF AUTO DIFF Differential Comment AUTO DIFF CONFIRMED Target Cells 1+ Acanthocytes OCC Keratocytes OCC Blood Urea Nitrogen 7 MG/DL 11 MG/DL 12 MG/DL Creatinine 0.79 MG/DL 1.18 MG/DL 1.17 MG/DL Random Glucose 104 MG/DL 130 MG/DL 96 MG/DL Total Protein 4.5 GM/DL Calcium Level 7.1 MG/DL 8.1 MG/DL 7.9 MG/DL Sodium Level 142 MEQ/L 142 MEQ/L 144 MEQ/L Potassium Level 3.9 MEQ/L 3.5 MEQ/L 3.6 MEQ/L Chloride Level 107 MEQ/L 107 MEQ/L 109 MEQ/L Carbon Dioxide Level 18.0 MEQ/L 25.9 MEQ/L 26.4 MEQ/L Anion Gap 17 MEQ/L 9 MEQ/L 9 MEQ/L Estimat Glomerular Filtration Rate 121 ML/MIN 76 ML/MIN 77 ML/MIN Protein Corrected Calcium 8.5 MG/DL Administered Medications Medications (Trade) Dose Ordered Sig/Tika Route PRN Reason Start Time Stop Time Status Last Admin Dose Admin Pantoprazole Sodium 80 mg/ Sodium Chloride 100 ml @ 10 mls/hr Q10H IV 08/05/17 15:06 08/11/17 08:30 Clonidine (Catapres) 0.1 mg Q6H PRN PO SEE LABEL COMMENTS 08/05/17 20:00 08/09/17 17:10 Amlodipine Besylate (Norvasc) 10 mg DAILY PO 08/08/17 08:30 08/11/17 08:30 Clonidine (Catapres) 0.1 mg Q8HR PO 08/09/17 14:00 08/11/17 05:32 Sodium Chloride 500 ml @ 75 mls/hr Q6H40M PRN IV SEE LABEL COMMENTS 08/09/17 14:00 08/12/17 13:59 08/10/17 11:30 Morphine Sulfate (Morphine 1 Mg/ ml PUBLIC HEALTH SANITARIAN TECHNICIAN) 30 mg UNSCH IV 08/10/17 11:15 08/10/17 11:56 PUBLIC HEALTH SANITARIAN TECHNICIAN Dosage Infused (Pha) 1 Q8HR .XX 08/10/17 14:00 08/11/17 06:00 Acetaminophen 100 ml @ 400 mls/hr Q6H IV 08/10/17 15:00 08/12/17 14:59 08/11/17 08:28 Objective Remarks GENERAL: Middle aged male, sitting up bed talking on phone in nad. SKIN: Warm and dry. HEAD: Normocephalic. EYES: No injection or drainage. NECK: Supple, trachea midline. CARDIOVASCULAR: Regular rate and rhythm RESPIRATORY: Breath sounds equal bilaterally. No accessory muscle use. GASTROINTESTINAL: binder in place. binder lifted to reveal incision sites clean without bleeding EXTREMITIES: No cyanosis NEUROLOGICAL: awake and alert. normal speech. Assessment/Plan Problem List: (1) Colonic mass ICD Codes: K63.9 - Disease of intestine, unspecified (2) Symptomatic anemia ICD Codes: D64.9 - Anemia, unspecified Status: Acute Assessment 61y/o with large colon mass history of hypertension. Plan 1. colonic mass, s/p hemicolectomy --await pathology 2. Severe anemia --s/p pRBC during this admission --likely iron deficient from chronic bleeding from the colon mass. --may need transfusion tomorrow if hgb falls further Attending Statement The exam, history, and the medical decision-making described in the above note were completed with the assistance of the mid-level provider. I reviewed and agree with the findings presented. I attest that I had a [id number] encounter with the patient on the same day, and personally performed and documented my assessment and findings in the medical record Start iron infusions monitor CBC follow path supportive care Serene Zhang Aug 11, 2017 09:28 Gold Null MD Aug 11, 2017 22:08
[2017-08-11 09:32] LABS: ACANTHOCYTES OCC (NORMAL); HELMET CELLS OCC (NORMAL); KERATOCYTES OCC (NORMAL); TEARDROP RBCS 1+ (NORMAL)
--- NOTE | 2017-08-11 11:22 | HHI.PR ---
Subjective Subjective Notes Resting in bed Reports he was painful yesterday but better today Tolerating clear liquids Objective Vitals/I&O Vital Signs Date Time Temp Pulse Resp B/P (MAP) Pulse Ox O2 Delivery O2 Flow Rate FiO2 08/11/17 08:00 97.3 78 17 161/81 (107) 97 08/10/17 12:30 Room Air Labs Laboratory Tests Test 08/10/17 16:25 08/11/17 07:21 Blood Urea Nitrogen 11 12 Creatinine 1.18 1.17 Random Glucose 130 96 Calcium Level 8.1 7.9 Sodium Level 142 144 Potassium Level 3.5 3.6 Chloride Level 107 109 Carbon Dioxide Level 25.9 26.4 Anion Gap 9 9 Estimat Glomerular Filtration Rate 76 77 White Blood Count 12.9 Red Blood Count 3.91 Hemoglobin 7.5 Hematocrit 26.2 Mean Corpuscular Volume 67.1 Mean Corpuscular Hemoglobin 19.2 Mean Corpuscular Hemoglobin Concent 28.6 Red Cell Distribution Width 32.7 Platelet Count 329 Mean Platelet Volume 8.8 Neutrophils (%) (Auto) 78.5 Lymphocytes (%) (Auto) 7.6 Monocytes (%) (Auto) 8.1 Eosinophils (%) (Auto) 4.7 Basophils (%) (Auto) 1.1 Neutrophils # (Auto) 10.1 Lymphocytes # (Auto) 1.0 Monocytes # (Auto) 1.0 Eosinophils # (Auto) 0.6 Basophils # (Auto) 0.1 CBC Comment AUTO DIFF Differential Comment AUTO DIFF CONFIRMED Platelet Estimate NORMAL Platelet Morphology Comment ENLARGED Tear Drop Cells 1+ Helmet Cells OCC Acanthocytes OCC Keratocytes OCC Cardiovascular: Regular Lungs: Clear Abdomen: Other (lap sites c/d/i; JACOBO in place to RLQ with good seal ) Extremities: No edema A/P Assessment and Plan 61 year old male with anemia; colon mass visualized on colonoscopy; POD1 lap assisted RIGHT hemicolectomy -Await biopsy results -Hmg 7.5; VSS; recheck in AM -Medical Oncology following -Continue clear liquids until bowel function returns -OOB and mobilize -Pain control -IS -Hold anticoagulation for now due to Hmg 7.5 ---will re eval tomorrow Attending Note - Dr. 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 I reviewed and agree with the findings presented. I attest that I had a [id number] encounter with the patient on the same day, and personally performed and documented my assessment and findings in the medical record. Marietta Jonas/First Leonel CROOK Aug 11, 2017 11:22 Kalen Fernando MD Aug 11, 2017 19:31
--- NOTE | 2017-08-11 11:32 | HHI.PR ---
Subjective Remarks In bed says he has some pain at the surgical site, using DIABETES MANAGER seldom. Did not pass gas, no BM. No fever or chills. No n/v/d/c. Objective Vitals Vital Signs Date Time Temp Pulse Resp B/P (MAP) Pulse Ox O2 Delivery O2 Flow Rate FiO2 08/11/17 08:00 97.3 78 17 161/81 (107) 97 08/11/17 06:00 20 08/11/17 04:00 97.7 82 18 146/71 (96) 95 08/11/17 00:00 97.7 78 20 136/70 (92) 95 08/10/17 22:00 20 08/10/17 20:00 97.9 75 20 174/86 (115) 96 08/10/17 16:00 97.6 72 17 130/64 (86) 97 08/10/17 12:58 97.3 56 18 110/55 (73) 94 08/10/17 12:30 97.7 60 19 104/57 (73) 95 Room Air 08/10/17 12:15 58 19 111/55 (73) 94 Room Air 08/10/17 12:00 56 19 112/57 (75) 94 Room Air 08/10/17 11:56 18 08/10/17 11:45 61 19 113/59 (77) 93 Room Air 08/10/17 11:30 63 17 113/56 (75) 94 Room Air I/O 08/10/17 08/10/17 08/10/17 08/11/17 08/11/17 08/11/17 07:00 15:00 23:00 07:00 15:00 23:00 Intake Total 1000 ml 2820 ml 1025 ml 460 ml Output Total 250 ml 150 ml 250 ml Balance 1000 ml 2570 ml 875 ml 210 ml Intake Oral 1000 ml 300 ml 360 ml IV Total 320 ml 725 ml 100 ml Other 2500 ml Output Urine Total 200 ml 150 ml 250 ml Estimated Blood Loss 50 ml # Voids 4 # Bowel Movements 0 0 0 Result Diagram: 08/11/17 0721 08/11/17 0721 Imaging Last Impressions Abdomen MRI 08/07/17 0000 Signed Impressions: CONCLUSION: 1. Multiple small scattered lesions in the right lobe of liver with signal mary racteristics characteristic of cysts. 2. Visualization of the known colonic lesion in the yamilex ascending colon. Abdomen/Pelvis CT 08/06/17 0000 Signed Impressions: CONCLUSION: 1. There is a soft tissue mass in the mid ascending colon causing wall thicken ing and luminal narrowing. The appearance is characteristic of a primary colon malignancy. The lesion measures up to 5.1 x 4.0 cm. Adjacent mildly enlarged daly spicious lymph nodes are present in the mesentery measuring up to 11 mm. 2. There are 3 low-density lesions in the liver that are too small to characte emily, measuring up to 7 mm. Given the colon findings, this should ideally be fu rther characterized at some point with liver protocol MRI with and without intr avenous contrast. Chest X-Ray 08/05/17 1333 Signed Impressions: CONCLUSION: No acute cardiopulmonary disease. Objective Remarks GENERAL: This is a well-nourished, well-developed patient, in no apparent distress. CARDIOVASCULAR: RRR, no gallops, or rubs. RESPIRATORY: Fair air entry bilaterally. No W, R, or R GASTROINTESTINAL: Abdomen soft, non-tender, nondistended. Positive bowel sounds MUSCULOSKELETAL: Extremities without clubbing, cyanosis, or edema. Pedal pulses appreciated NEUROLOGICAL: Awake and alert. Moves all extremity. Normal speech.no focal neurological deficit A/P Assessment and Plan 61-year-old white male admitted for GI bleed 08/07: EGD came back unremarkable, however colonoscopy revealed ascending colon mass, appreciate GI assistance, general surgery consulted they recommended hemicolectomy on Thursday, however patient is refusing and insisting on leaving AMA, he told me he wants to go visit his sister in [facility] and he has an airplane ticket already put. 08/08: Plan for hemicolectomy on Thursday by Dr. Fernando, continue current care 08/09: Patient reported bowel movement today without blood, plan for hemicolectomy tomorrow with port placement by Dr. Fernando, he previously requested 2 units of PRBC to be on hold I ordered those, discussed with the nurse, and with the patient,A1c is 5.3 MARILEE with creatinine 1.36>> avoid nephrotoxin, start IV fluid monitor kidney function, monitor BMP MARILEE resolved creatinine 0.7 ( 08/10) S/p right hemicolectomy by Dr. Fernando 08/10 Shortness of breath. Resolved. Satting well on room air. -Exertional in origin, chest x-ray is negative Mostly due to severe acute anemia Ascending colon mass Revealed on colonoscopy, suspecting malignancy, workup in progress GS consulted recommended surgery on Thursday Hematology oncology consulted GI bleed -Hemoglobin 4.9, total order 3 units of blood to be transfused -Appreciate GI consultation, patient going for EGD today and colonoscopy Hypertension blood pressure 170/86 I will add Norvasc and monitor. Discussed with the patient, nurse DC plan pending improvement and clearance by surgeon ( Dr Fernando). Cheryl Gomes MD Aug 11, 2017 11:32
[2017-08-11 12:00] VITALS: BP 139/70; PULSE 76; RESP 18; TEMP 98.2; O2SAT 96
[2017-08-11] MEDS: PANTOPRAZOLE SODIUM 40 MG VIAL IV PUSH SCH (12:00)
[2017-08-11 16:00] VITALS: BP 166/85; PULSE 82; RESP 17; TEMP 99.1; O2SAT 95
[2017-08-11] MEDS ORDERED: ACETAMINOPHEN/HYDROcodone 325 MG/7.5 MG TAB PO PRN ×2 (19:30)
[2017-08-11 20:00] VITALS: BP 167/87; PULSE 76; RESP 20; TEMP 97.7; O2SAT 98
[2017-08-11 23:16] LABS: % SATURATION IRON PROFILE 3.2 % (20-50); IRON (FE) 10 MCG/DL (65-175); TOTAL IRON BINDING CAPACITY 312 MCG/DL (250-450)
[2017-08-11 23:18] LABS: FERRITIN 28 NG/ML (26-388)
[2017-08-12] VITALS: BP 171/90; PULSE 77; RESP 20; TEMP 97.7; O2SAT 95
[2017-08-12] MEDS: ACETAMINOPHEN 1000 MG/100 ML 100 ML IV SCH ×2 (02:35→10:02)
[2017-08-12 05:05] VITALS: BP 163/78; PULSE 78; RESP 18; TEMP 97.8; O2SAT 96
[2017-08-12] MEDS: cloNIDine HCL 0.1 MG TAB PO SCH ×3 (05:54→20:58)
[2017-08-12] MEDS: PCA - TOTAL MG MORPHINE DELIVERED PER SHIFT SCH ×3 (06:00→21:20)
[2017-08-12 07:17] LABS: AUTOMATED NEUTROPHIL # 12.4 TH/MM3 (1.8-7.7); BASOPHIL # 0.1 TH/MM3 (0-0.2); BASOPHIL % 0.8 % (0.0-2.0); HEMOGLOBIN 8.2 GM/DL (13.0-17.0); LYMPH % 8.6 % (9.0-44.0); LYMPHOCYTE # 1.4 TH/MM3 (1.0-4.8); MEAN CELL VOLUME 67.1 FL (80.0-100.0); MEAN CORPUSCULAR HEMOGLOBIN 19.7 PG (27.0-34.0); MEAN PLATELET VOLUME 8.4 FL (7.0-11.0); MONO % 7.5 % (0.0-8.0); MONOCYTE # 1.2 TH/MM3 (0-0.9); NEUT % 77.1 % (16.0-70.0); PLATELET COUNT 363 TH/MM3 (150-450); RED BLOOD COUNT 4.17 MIL/MM3 (4.50-5.90); RED CELL DISTRIBUTION WIDTH 32.9 % (11.6-17.2)
[2017-08-12 07:22] LABS: MEAN CORPUSCULAR HGB CONC 29.3 % (32.0-36.0)
[2017-08-12 07:40] LABS: BLOOD UREA NITROGEN 8 MG/DL (7-18); CALCIUM 8.2 MG/DL (8.5-10.1); CHLORIDE 108 MEQ/L (98-107); CREATININE 0.94 MG/DL (0.60-1.30); GLOMERULAR FILTRATION RATE 99 ML/MIN (>89); GLUCOSE,RANDOM 99 MG/DL (74-106); SODIUM (NA) 141 MEQ/L (136-145)
[2017-08-12 07:41] LABS: IRON (FE) 9 MCG/DL (65-175)
[2017-08-12 08:00] VITALS: BP 171/74; PULSE 85; RESP 19; TEMP 98.7; O2SAT 96
[2017-08-12] MEDS: INSULIN ASPART SUPPLEMENTAL SCALE SQ SCH ×4 (08:00→20:57)
[2017-08-12 08:07] LABS: % SATURATION IRON PROFILE 3.1 % (20-50); FERRITIN 34 NG/ML (26-388); TOTAL IRON BINDING CAPACITY 291 MCG/DL (250-450)
[2017-08-12 09:05] LABS: KERATOCYTES OCC (NORMAL); SPHEROCYTES 1+ (NORMAL)
[2017-08-12 09:06] LABS: OVALOCYTES 1+ (NORMAL); TEARDROP RBCS 1+ (NORMAL)
--- NOTE | 2017-08-12 09:25 | HHI.PR ---
Subjective Remarks Patient is in the chair says he did not have a bowel movement yet and did not pass gas. Encourage ambulation, says he has less pain. No nausea vomiting no fever or chills. Objective Vitals Vital Signs Date Time Temp Pulse Resp B/P (MAP) Pulse Ox O2 Delivery O2 Flow Rate FiO2 08/12/17 08:00 98.7 85 19 171/74 (106) 96 08/12/17 06:00 18 08/12/17 05:05 97.8 78 18 163/78 (106) 96 08/12/17 00:00 97.7 77 20 171/90 (117) 95 08/11/17 22:00 18 08/11/17 20:00 97.7 76 20 167/87 (113) 98 08/11/17 16:00 99.1 82 17 166/85 (112) 95 08/11/17 12:00 98.2 76 18 139/70 (93) 96 I/O 08/11/17 08/11/17 08/11/17 08/12/17 08/12/17 08/12/17 07:00 15:00 23:00 07:00 15:00 23:00 Intake Total 460 ml 60 ml 700 ml 580 ml Output Total 250 ml 900 ml 400 ml Balance 210 ml 60 ml -200 ml 180 ml Intake Oral 360 ml 600 ml 480 ml IV Total 100 ml 60 ml 100 ml 100 ml Output Urine Total 250 ml 900 ml 400 ml # Voids 3 # Bowel Movements 0 0 Result Diagram: 08/12/17 0642 08/12/17 0642 Objective Remarks GENERAL: This is a well-nourished, well-developed patient, in no apparent distress. CARDIOVASCULAR: RRR, no gallops, or rubs. RESPIRATORY: Fair air entry bilaterally. No W, R, or R GASTROINTESTINAL: Abdomen soft, non-tender, nondistended. Positive bowel sounds MUSCULOSKELETAL: Extremities without clubbing, cyanosis, or edema. Pedal pulses appreciated NEUROLOGICAL: Awake and alert. Moves all extremity. Normal speech.no focal neurological deficit A/P Assessment and Plan 61-year-old white male admitted for GI bleed 08/07: EGD came back unremarkable, however colonoscopy revealed ascending colon mass, appreciate GI assistance, general surgery consulted they recommended hemicolectomy on Thursday, however patient is refusing and insisting on leaving AMA, he told me he wants to go visit his sister in [facility] and he has an airplane ticket already put. 08/08: Plan for hemicolectomy on Thursday by Dr. Fernando, continue current care 08/09: Patient reported bowel movement today without blood, plan for hemicolectomy tomorrow with port placement by Dr. Fernando, he previously requested 2 units of PRBC to be on hold I ordered those, discussed with the nurse, and with the patient,A1c is 5.3 MARILEE with creatinine 1.36>> avoid nephrotoxin, start IV fluid monitor kidney function, monitor BMP MARILEE resolved creatinine 0.7 ( 08/10) S/p right hemicolectomy by Dr. Fernando 08/10 Shortness of breath. Resolved. Satting well on room air. -Exertional in origin, chest x-ray is negative Mostly due to severe acute anemia Ascending colon mass Revealed on colonoscopy, suspecting malignancy, workup in progress GS consulted recommended surgery on Thursday Hematology oncology consulted GI bleed -Hemoglobin 4.9, total order 3 units of blood to be transfused -Appreciate GI consultation, patient going for EGD today and colonoscopy Hypertension blood pressure 170/86 I will add Norvasc and monitor. Discussed with the patient, nurse DC plan pending improvement and clearance by surgeon ( Dr Fernando). Did not pass gas and did not have a bowel movement. Advance diet per surgeon. Cheryl Gomes MD Aug 12, 2017 09:25
[2017-08-12] MEDS: SODIUM CHLOR 0.9% 1000 ML INJ 1,000 ML IV SCH ×2 (10:00→18:00)
[2017-08-12] MEDS: amLODIPine BESYLATE 5 MG TAB PO SCH (10:01)
[2017-08-12] MEDS: IRON SUCROSE INJ 200 MG in SODIUM CHLORIDE 0.9% INJ 100 ML IV SCH (10:01)
[2017-08-12 12:00] VITALS: BP 145/95; PULSE 80; RESP 18; TEMP 97.3; O2SAT 95
[2017-08-12] MEDS: PANTOPRAZOLE SODIUM 40 MG VIAL IV PUSH SCH (12:34)
[2017-08-12 16:00] VITALS: BP 163/91; PULSE 75; RESP 19; TEMP 97.3; O2SAT 96
--- NOTE | 2017-08-12 17:51 | HHI.PR ---
Subjective Subjective Notes Resting in bed states he threw up twice today Objective Vitals/I&O Vital Signs Date Time Temp Pulse Resp B/P (MAP) Pulse Ox O2 Delivery O2 Flow Rate FiO2 08/12/17 16:00 97.3 75 19 163/91 (115) 96 08/10/17 12:30 Room Air Labs Laboratory Tests Test 08/11/17 22:40 08/12/17 06:42 Iron Level 10 9 Total Iron Binding Capacity 312 291 Percent Iron Saturation 3.2 3.1 Ferritin 28 34 White Blood Count 16.0 Red Blood Count 4.17 Hemoglobin 8.2 Hematocrit 28.0 Mean Corpuscular Volume 67.1 Mean Corpuscular Hemoglobin 19.7 Mean Corpuscular Hemoglobin Concent 29.3 Red Cell Distribution Width 32.9 Platelet Count 363 Mean Platelet Volume 8.4 Neutrophils (%) (Auto) 77.1 Lymphocytes (%) (Auto) 8.6 Monocytes (%) (Auto) 7.5 Eosinophils (%) (Auto) 6.0 Basophils (%) (Auto) 0.8 Neutrophils # (Auto) 12.4 Lymphocytes # (Auto) 1.4 Monocytes # (Auto) 1.2 Eosinophils # (Auto) 1.0 Basophils # (Auto) 0.1 CBC Comment AUTO DIFF Differential Comment AUTO DIFF CONFIRMED Platelet Estimate NORMAL Platelet Morphology Comment NORMAL Spherocytes 1+ Tear Drop Cells 1+ Ovalocytes 1+ Keratocytes OCC Blood Urea Nitrogen 8 Creatinine 0.94 Random Glucose 99 Calcium Level 8.2 Sodium Level 141 Potassium Level 3.5 Chloride Level 108 Carbon Dioxide Level 24.0 Anion Gap 9 Estimat Glomerular Filtration Rate 99 Vitamin B12 Level 1063 Cardiovascular: Regular Lungs: Clear Abdomen: Other (JACOBO in place with good seal; lap sites c/d/i ) Extremities: No edema A/P Assessment and Plan 61 year old male with anemia; colon mass visualized on colonoscopy; POD2 lap assisted RIGHT hemicolectomy -Reviewed pathology results with patient ---also discussed with Dr. Null -Rossana 8.5; VSS -Start Lovenox -Start NS at 75 cc/hr -Medical Oncology following -Continue clear liquids until bowel function returns -OOB and mobilize -Pain control -IS Attending Note - Dr. Fernando As above; suspect mild ileus Abdomen remains benign and soft Will keep on full liquid diet for now Hb remains stable. Discussed with Dr. Марина Null; likely will not need chemotherapy with [id number] lesion The exam, history, and the medical decision-making described in the above note were completed with the assistance of the mid-level provider. I reviewed and agree with the findings presented. I attest that I had a [id number] encounter with the patient on the same day, and personally performed and documented my assessment and findings in the medical record. Marietta Jonas/First Leonel CROOK Aug 12, 2017 17:51 Kalen Fernando MD Aug 13, 2017 17:13
[2017-08-12 20:00] VITALS: BP 190/85; PULSE 81; RESP 19; TEMP 98.4; O2SAT 94
[2017-08-12] MEDS: ENOXAPARIN SODIUM 40 MG/0.4 ML SYRINGE SQ SCH (20:57)
[2017-08-13] VITALS: BP 168/81; PULSE 76; RESP 19; TEMP 98; O2SAT 95
[2017-08-13 04:00] VITALS: BP 144/77; PULSE 64; RESP 17; TEMP 99.4; O2SAT 97
[2017-08-13] MEDS: PCA - TOTAL MG MORPHINE DELIVERED PER SHIFT SCH (06:00)
[2017-08-13] MEDS: cloNIDine HCL 0.1 MG TAB PO SCH ×3 (06:00→20:13)
[2017-08-13 08:00] VITALS: BP 161/88; PULSE 85; RESP 18; TEMP 97.6; O2SAT 97
[2017-08-13] MEDS ORDERED: ONDANSETRON ODT 4 MG TAB PO PRN (09:15)
[2017-08-13] MEDS ORDERED: AMLO5 PO (09:28)
[2017-08-13] MEDS ORDERED: NORC5TAB PO (09:28)
[2017-08-13] MEDS ORDERED: COLA100C5 PO (09:28)
--- NOTE | 2017-08-13 09:28 | HHI.DS ---
cc: Kalen Fernando MD Discharge Summary Admission Date August 05, 2017 at 15:35 Discharge Date: Aug 15, 2017 Admitting Diagnosis GI bleed, symptomatic anemia (1) S/P right colectomy ICD Code: Z90.49 - Acquired absence of other specified parts of digestive tract Status: Acute (2) Colon cancer ICD Code: C18.9 - Malignant neoplasm of colon, unspecified Status: Chronic Procedures S/p right hemicolectomy by Dr. Fernando 08/10 Brief History - From Admission 61-year-old black male being admitted for GI bleed. Patient was in his usual state of health until about 2 months ago around the time of bike week when he began experiencing gradual onset of fatigue. 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 Denies having chest pain or shortness of breath at rest. Does feel more "rundown." Denies having any nausea vomiting diarrhea or abdominal pain. Denies any bright red blood per rectum nor any melena, just reports that his stool is somewhat darker than usual. Bowel movements are unchanged in the pattern. Takes only baby aspirin a day, denies any Aleve or ibuprofen or any other NSAID use. Patient reports having a colonoscopy done about 4-5 years ago in [place] and' s was told that it was good without any polyps or tumors. Patient reports being adopted so he does not know his family colorectal history. Patient had plans to go to [facility] in about 10 days and decide to get checked out before departing. ER performed hemoccult is + with hemoglobin 4.9. CBC/BMP: 08/12/17 0642 08/12/17 0642 Significant Findings Laboratory Tests Test 08/10/17 11:17 08/10/17 16:25 08/11/17 07:21 08/11/17 22:40 White Blood Count 14.1 TH/MM3 (4.0-11.0) 12.9 TH/MM3 (4.0-11.0) Red Blood Count 4.22 MIL/MM3 (4.50-5.90) 3.91 MIL/MM3 (4.50-5.90) Hemoglobin 8.1 GM/DL (13.0-17.0) 7.5 GM/DL (13.0-17.0) Hematocrit 28.0 % (39.0-51.0) 26.2 % (39.0-51.0) Mean Corpuscular Volume 66.4 FL (80.0-100.0) 67.1 FL (80.0-100.0) Mean Corpuscular Hemoglobin 19.1 PG (27.0-34.0) 19.2 PG (27.0-34.0) Mean Corpuscular Hemoglobin Concent 28.8 % (32.0-36.0) 28.6 % (32.0-36.0) Red Cell Distribution Width 32.8 % (11.6-17.2) 32.7 % (11.6-17.2) Neutrophils (%) (Auto) 86.6 % (16.0-70.0) 78.5 % (16.0-70.0) Lymphocytes (%) (Auto) 5.2 % (9.0-44.0) 7.6 % (9.0-44.0) Neutrophils # (Auto) 12.2 TH/MM3 (1.8-7.7) 10.1 TH/MM3 (1.8-7.7) Lymphocytes # (Auto) 0.7 TH/MM3 (1.0-4.8) Target Cells 1+ (NORMAL) Total Protein 4.5 GM/DL (6.4-8.2) Calcium Level 7.1 MG/DL (8.5-10.1) 8.1 MG/DL (8.5-10.1) 7.9 MG/DL (8.5-10.1) Carbon Dioxide Level 18.0 MEQ/L (21.0-32.0) Anion Gap 17 MEQ/L (5-15) Random Glucose 130 MG/DL (74-106) Estimat Glomerular Filtration Rate 76 ML/MIN (>89) 77 ML/MIN (>89) Monocytes (%) (Auto) 8.1 % (0.0-8.0) Eosinophils (%) (Auto) 4.7 % (0.0-4.0) Monocytes # (Auto) 1.0 TH/MM3 (0-0.9) Eosinophils # (Auto) 0.6 TH/MM3 (0-0.4) Platelet Morphology Comment ENLARGED (NORMAL) Tear Drop Cells 1+ (NORMAL) Chloride Level 109 MEQ/L (98-107) Iron Level 10 MCG/DL (65-175) Percent Iron Saturation 3.2 % (20-50) Test 08/12/17 06:42 White Blood Count 16.0 TH/MM3 (4.0-11.0) Red Blood Count 4.17 MIL/MM3 (4.50-5.90) Hemoglobin 8.2 GM/DL (13.0-17.0) Hematocrit 28.0 % (39.0-51.0) Mean Corpuscular Volume 67.1 FL (80.0-100.0) Mean Corpuscular Hemoglobin 19.7 PG (27.0-34.0) Mean Corpuscular Hemoglobin Concent 29.3 % (32.0-36.0) Red Cell Distribution Width 32.9 % (11.6-17.2) Neutrophils (%) (Auto) 77.1 % (16.0-70.0) Lymphocytes (%) (Auto) 8.6 % (9.0-44.0) Eosinophils (%) (Auto) 6.0 % (0.0-4.0) Neutrophils # (Auto) 12.4 TH/MM3 (1.8-7.7) Monocytes # (Auto) 1.2 TH/MM3 (0-0.9) Eosinophils # (Auto) 1.0 TH/MM3 (0-0.4) Spherocytes 1+ (NORMAL) Tear Drop Cells 1+ (NORMAL) Ovalocytes 1+ (NORMAL) Calcium Level 8.2 MG/DL (8.5-10.1) Chloride Level 108 MEQ/L (98-107) Iron Level 9 MCG/DL (65-175) Percent Iron Saturation 3.1 % (20-50) Vitamin B12 Level 1063 PG/ML (193-986) FINAL DIAGNOSIS: COLON: RESECTION. PROCEDURE: RIGHT HEMICOLECTOMY. TUMOR SITE: RIGHT (ASCENDING) COLON. TUMOR SIZE: 6.5 X 4.5 X 1.0 CM. MACROSCOPIC TUMOR PERFORATION: NOT IDENTIFIED. HISTOLOGIC TYPE: ADENOCARCINOMA. HISTOLOGIC GRADE: G2 (MODERATELY DIFFERENTIATED). TUMOR EXTENSION: TUMOR INVADES THROUGH THE MUSCULARIS PROPRIA INTO PERICOLONIC TISSUES. SPECIMEN MARGINS: ALL MARGINS ARE UNINVOLVED BY INVASIVE CARCINOMA, HIGH GRADE DYSPLASIA, INTRAMUCOSAL ADENOCARCINOMA AND ADENOMA. MARGINS EXAMINED: DISTAL, PROXIMAL AND RADIAL. PROXIMAL MARGIN: UNINVOLVED BY INVASIVE CARCINOMA. DISTAL MARGIN: UNINVOLVED BY INVASIVE CARCINOMA. RADIAL MARGIN: UNINVOLVED BY INVASIVE CARCINOMA. TREATMENT EFFECT: NO KNOWN PRESURGICAL THERAPY. LYMPHOVASCULAR INVASION: NOT IDENTIFIED. PERINEURAL INVASION: NOT IDENTIFIED. TYPE OF POLYP IN WHICH INVASIVE CARCINOMA AROSE: NONE IDENTIFIED. TUMOR DEPOSITS: NOT IDENTIFIED. REGIONAL LYMPH NODES: NUMBER OF LYMPH NODES INVOLVED: 0 NUMBER OF LYMPH NODES EXAMINED: 21 PATHOLOGIC STAGE CLASSIFICATION (pTNM, AJCC 8th Edition): pT3, pN0, pMX. ADDITIONAL PATHOLOGICAL FINDINGS: NONE IDENTIFIED. Imaging Last Impressions Chest CT 08/13/17 Signed Impressions: CONCLUSION: There are no findings to indicate metastatic disease within the chest. No john rning pulmonary nodule is seen. Abdomen X-Ray 08/13/17 Signed Impressions: CONCLUSION: Gas pattern most consistent with adynamic ileus Abdomen MRI 08/07/17 Signed Impressions: CONCLUSION: 1. Multiple small scattered lesions in the right lobe of liver with signal mary racteristics characteristic of cysts. 2. Visualization of the known colonic lesion in the yamilex ascending colon. Abdomen/Pelvis CT 08/06/17 0000 Signed Impressions: CONCLUSION: 1. There is a soft tissue mass in the mid ascending colon causing wall thicken ing and luminal narrowing. The appearance is characteristic of a primary colon malignancy. The lesion measures up to 5.1 x 4.0 cm. Adjacent mildly enlarged daly spicious lymph nodes are present in the mesentery measuring up to 11 mm. 2. There are 3 low-density lesions in the liver that are too small to characte rize, measuring up to 7 mm. Given the colon findings, this should ideally be fu rther characterized at some point with liver protocol MRI with and without intr avenous contrast. Chest X-Ray 08/05/17 1333 Signed Impressions: CONCLUSION: No acute cardiopulmonary disease. PE at Discharge GENERAL: This is a well-nourished, well-developed patient, in no apparent distress. CARDIOVASCULAR: RRR, no gallops, or rubs. RESPIRATORY: Fair air entry bilaterally. No W, R, or R GASTROINTESTINAL: Abdomen soft, non-tender, nondistended. Positive bowel sounds MUSCULOSKELETAL: Extremities without clubbing, cyanosis, or edema. Pedal pulses appreciated NEUROLOGICAL: Awake and alert. Moves all extremity. Normal speech.no focal neurological deficit Hospital Course 61-year-old white male admitted for GI bleed 08/07: EGD came back unremarkable, however colonoscopy revealed ascending colon mass, appreciate GI assistance, general surgery consulted they recommended hemicolectomy on Thursday, however patient is refusing and insisting on leaving AMA, he told me he wants to go visit his sister in [facility] and he has an airplane ticket already put. 08/08: Plan for hemicolectomy on Thursday by Dr. Fernando, continue current care 08/09: Patient reported bowel movement today without blood, plan for hemicolectomy tomorrow with port placement by Dr. Fernando, he previously requested 2 units of PRBC to be on hold I ordered those, discussed with the nurse, and with the patient,A1c is 5.3 MARILEE with creatinine 1.36>> avoid nephrotoxin, start IV fluid monitor kidney function, monitor BMP. MARILEE resolved creatinine 0.7 ( 08/10) S/p right hemicolectomy by Dr. Fernando 08/10 Poss ileus. KUB reviewed patient with gas pattern and adynamic ileus. Resolving gen surgery ff Shortness of breath. Resolved. Satting well on room air. -Exertional in origin, chest x-ray is negative Mostly due to severe acute anemia Ascending colon mass Revealed on colonoscopy, suspecting malignancy, workup in progress GS consulted recommended surgery on Thursday Hematology oncology consulted GI bleed -Hemoglobin 4.9, total order 3 units of blood to be transfused -Appreciate GI consultation, patient going for EGD today and colonoscopy Hypertension blood pressure 170/86 I will add Norvasc and monitor. Discussed with the patient, nurse Patient improved significantly. He passed gas and had a bowel movement. Tolerates diet. Cleared for discharge by consultants. Patient is discharged home in stable condition. Patient to follow-up with outpatient with PCP and consultants. Pt Condition on Discharge: Stable Discharge Disposition: Disch w/ Home Health Serv Discharge Time: > 30 minutes Discharge Instructions DIET: Follow Instructions for: Heart Healthy Diet Activities you can perform: Regular-No Restrictions Follow up Referrals: PCP Follow-up - 2-3 Days PCP Follow-up Surgical - 08/20/17 with Kalen Fernando MD Appt set for August 20 at 10:20AM Surgical New Medications: Docusate Sodium (Colace) 100 Mg Capsule 100 MG PO BID for Prevent Constipation, #60 CAP 0 Refills Ferrous Sulfate (Ferrous Sulfate) 325 Mg (65 Mg Iron) Tablet 325 MG PO DAILY for Nutritional Supplement, #30 TAB 0 Refills Hydrocodone-Acetaminophen ([place]) 5 Mg-325 Mg Tab 1 TAB PO Q6H PRN for PAIN, #30 TAB 0 Refills Amlodipine (Norvasc) 5 Mg Tab 10 MG PO DAILY for Blood Pressure Management, #30 TAB Continued Medications: Aspirin (Aspirin Low Dose) 81 Mg Chew 81 MG CHEW DAILY, TAB 0 Refills Fish Oil-Cholecalciferol (Fish Oil + D3) 1,200-1,000 Mg-Unit Cap 1 CAP PO DAILY for Nutritional Supplement, #30 CAP 0 Refills Cheryl Gomes MD Aug 13, 2017 09:28 Chandler Blanco MD Aug 15, 2017 12:33
--- NOTE | 2017-08-13 09:29 | HHI.FF ---
Face to Face Verification Diagnosis: (1) GI bleed (2) Symptomatic anemia (3) Colonic mass Physical Therapy Order: Evaluate and Treat Home Health Nursing Order: Medical education Signs/symptoms of disease process Medication education-adverse effect Nursing assessment with vital signs I have seen patient Kodak Serrano Jr Arsh on 08/13/17. My clinical findings support the need for the requested home health care services because: Ltd mobility - disease progression I certify that my clinical findings support that this patient is homebound because: Post-op weakness Cheryl Gomes MD Aug 13, 2017 09:29
[2017-08-13] MEDS ORDERED: FERR325T18 PO (09:31)
[2017-08-13] MEDS: IRON SUCROSE INJ 200 MG in SODIUM CHLORIDE 0.9% INJ 100 ML IV SCH (10:00)
[2017-08-13] MEDS: amLODIPine BESYLATE 5 MG TAB PO SCH (10:00)
[2017-08-13] MEDS ORDERED: NALOXONE HCL 0.4 MG/ML AMP IV PUSH PRN (10:45)
[2017-08-13] MEDS ORDERED: SENNOSIDES 8.6 MG TAB PO PRN (10:45)
[2017-08-13] MEDS ORDERED: METOCLOPRAMIDE HCL 10 MG/2 ML VIAL IV PUSH PRN (10:45)
[2017-08-13] MEDS ORDERED: BISACODYL 10 MG SUPP RECTAL PRN (10:45)
[2017-08-13] MEDS ORDERED: MAGNESIUM HYDROXIDE SUSP 30 ML CUP PO PRN (10:45)
[2017-08-13] MEDS ORDERED: LACTULOSE SYRUP 20 GM/30 ML CUP PO PRN (10:45)
--- NOTE | 2017-08-13 11:13 | PD.ONC.PN ---
Subjective Subjective Remarks Afebrile overnight. Patient resting in bed in nad. Had a few episodes of emesis overnight. states he feels better now. He is going to try to eat something this AM. denies nausea. no abdominal pain at present. Objective Data Date Time Temp Pulse Resp B/P (MAP) Pulse Ox O2 Delivery O2 Flow Rate FiO2 08/13/17 08:00 97.6 85 18 161/88 (112) 97 08/13/17 04:00 99.4 64 17 144/77 (99) 97 08/13/17 00:00 98.0 76 19 168/81 (110) 95 08/12/17 21:20 19 08/12/17 20:00 98.4 81 19 190/85 (120) 94 08/12/17 16:00 97.3 75 19 163/91 (115) 96 08/12/17 14:00 18 08/12/17 12:00 97.3 80 18 145/95 (112) 95 08/13/17 08/13/17 08/13/17 07:00 15:00 23:00 Intake Total 240 ml Balance 240 ml Result Diagram: 08/12/17 0642 08/12/17 06 Administered Medications Medications (Trade) Dose Ordered Sig/Tika Route PRN Reason Start Time Stop Time Status Last Admin Dose Admin Clonidine (Catapres) 0.1 mg Q6H PRN PO SEE LABEL COMMENTS 08/05/17 20:00 08/09/17 17:10 Amlodipine Besylate (Norvasc) 10 mg DAILY PO 08/08/17 08:30 08/13/17 10:00 Clonidine (Catapres) 0.1 mg Q8HR PO 08/09/17 14:00 08/12/17 20:58 Morphine Sulfate (Morphine 1 Mg/ ml MANAGER INFORMATION) 30 mg UNSCH IV 08/10/17 11:15 08/10/17 11:56 MANAGER INFORMATION Dosage Infused (Pha) 1 Q8HR .XX 08/10/17 14:00 08/13/17 06:00 Pantoprazole Sodium (Protonix Inj) 40 mg Q24H IV PUSH 08/11/17 12:00 08/12/17 12:34 Iron Sucrose 200 mg/Sodium Chloride 110 ml @ 110 mls/hr DAILY IV 08/12/17 09:00 08/14/17 09:59 08/13/17 10:00 Objective Remarks GENERAL: Middle aged male, sitting up in chair next to bed in nad. SKIN: Warm and dry. HEAD: Normocephalic. EYES: No injection or drainage. NECK: Supple, trachea midline. CARDIOVASCULAR: Regular rate and rhythm RESPIRATORY: Breath sounds equal bilaterally. No accessory muscle use. GASTROINTESTINAL: Abdominal binder in place EXTREMITIES: No cyanosis NEUROLOGICAL: awake, alert and oriented. facial movements symmetric. Assessment/Plan Problem List: (1) Colonic mass ICD Codes: K63.9 - Disease of intestine, unspecified (2) Symptomatic anemia ICD Codes: D64.9 - Anemia, unspecified Status: Acute Assessment 61y/o with large colon mass history of hypertension. Plan 1. colonic mass, s/p hemicolectomy --pathology shows adenocarcinoma. --clear margins. --no LN involvement. --d/w patient that he will not need adjuvant chemotherapy. patient will need surveillance. --faxed fs to new patient referrals for follow up in 3 weeks for surveillance. --CT chest ordered for routine staging 2. Severe anemia --s/p pRBC during this admission --s/p iron infusions Serene Zhang Aug 13, 2017 11:13
--- NOTE | 2017-08-13 11:44 | HHI.PR ---
Subjective Subjective Notes Up to chair Nausea this AM but seems better now Only painful when moving Objective Vitals/I&O Vital Signs Date Time Temp Pulse Resp B/P (MAP) Pulse Ox O2 Delivery O2 Flow Rate FiO2 08/13/17 08:00 97.6 85 18 161/88 (112) 97 08/10/17 12:30 Room Air Cardiovascular: Regular Lungs: Clear Abdomen: Other (JACOBO in place with good seal; lap sites c/d/i ), Post-op tenderness Extremities: No edema A/P Assessment and Plan 61 year old male with anemia; colon mass visualized on colonoscopy; POD3 lap assisted RIGHT hemicolectomy -Hmg 8.2; VSS -Continue Lovenox--- patient refused dose last night--- explained in detail reason for DVT prophylaxis -Still not drinking much ---will continue NS at 75 cc/hr -Medical Oncology following -On Full liquids but mainly sticking with clears--- will advance as tolerated -KUB today ---likely has post op ileus -OOB and mobilize -Pain control -IS Attending Note - Dr. Fernando Abdomen soft; patient afraid to eat solid food. Flatus, but no BM yet. The exam, history, and the medical decision-making described in the above note were completed with the assistance of the mid-level provider. I reviewed and agree with the findings presented. I attest that I had a [id number] encounter with the patient on the same day, and personally performed and documented my assessment and findings in the medical record. Marietta Jonas/First Leonel CROOK Aug 13, 2017 11:44 Kalen Fernando MD Aug 13, 2017 17:16
[2017-08-13 12:00] VITALS: BP 177/103; PULSE 90; RESP 18; TEMP 97.4; O2SAT 93
--- NOTE | 2017-08-13 12:32 | RADRPT ---
EXAM DATE: 08/13/2017 12:22 PM EDT AGE/SEX: 61 years / Male INDICATIONS: Ileus, post op right hemicolectomy, vomiting. CLINICAL DATA: This is the patient's subsequent encounter. Patient reports that signs and symptoms h ave been present for 4 - 6 days and indicates a pain score of 0/10. MEDICAL/SURGICAL HISTORY: None. . right hemicolectomy COMPARISON: No prior exams available for comparison. FINDINGS: There is moderate gaseous distention of small bowel loops throughout the abdomen and of portions of the colon. There is formed stool in the rectum. Surgical prince are seen in the right mid abdomen co nsistent with the stated history. CONCLUSION: Gas pattern most consistent with adynamic ileus Electronically signed by: Manoj Teresa MD 08/13/2017 12:31 PM EDT
[2017-08-13] MEDS: PANTOPRAZOLE SODIUM 40 MG VIAL IV PUSH SCH (12:43)
--- NOTE | 2017-08-13 13:30 | HHI.PR ---
Subjective Remarks In bed he appears in not acute distress at this time. With some nausea. Passing gas however did not have a bowel movement. no fever or chills. No much abdominal pain. Objective Vitals Vital Signs Date Time Temp Pulse Resp B/P (MAP) Pulse Ox O2 Delivery O2 Flow Rate FiO2 08/13/17 12:00 97.4 90 18 177/103 (127) 93 08/13/17 08:00 97.6 85 18 161/88 (112) 97 08/13/17 04:00 99.4 64 17 144/77 (99) 97 08/13/17 00:00 98.0 76 19 168/81 (110) 95 08/12/17 21:20 19 08/12/17 20:00 98.4 81 19 190/85 (120) 94 08/12/17 16:00 97.3 75 19 163/91 (115) 96 08/12/17 14:00 18 I/O 08/12/17 08/12/17 08/12/17 08/13/17 08/13/17 08/13/17 07:00 15:00 23:00 07:00 15:00 23:00 Intake Total 580 ml 210 ml 980 ml 240 ml Output Total 400 ml 5 ml Balance 180 ml 210 ml 975 ml 240 ml Intake Oral 480 ml 980 ml 240 ml IV Total 100 ml 210 ml Output Urine Total 400 ml 5 ml # Voids 3 3 Result Diagram: 08/12/17 0642 08/12/17 0642 Objective Remarks GENERAL: This is a well-nourished, well-developed patient, in no apparent distress. CARDIOVASCULAR: RRR, no gallops, or rubs. RESPIRATORY: Fair air entry bilaterally. No W, R, or R GASTROINTESTINAL: Abdomen soft, non-tender, distended. Surgical site c/d/i, abdominal binder. Positive bowel sounds however diminished. MUSCULOSKELETAL: Extremities without clubbing, cyanosis, or edema. Pedal pulses appreciated NEUROLOGICAL: Awake and alert. Moves all extremity. Normal speech.no focal neurological deficit A/P Assessment and Plan 61-year-old white male admitted for GI bleed 08/07: EGD came back unremarkable, however colonoscopy revealed ascending colon mass, appreciate GI assistance, general surgery consulted they recommended hemicolectomy on Thursday, however patient is refusing and insisting on leaving AMA, he told me he wants to go visit his sister in [facility] and he has an airplane ticket already put. 08/08: Plan for hemicolectomy on Thursday by Dr. Fernando, continue current care 08/09: Patient reported bowel movement today without blood, plan for hemicolectomy tomorrow with port placement by Dr. Fernando, he previously requested 2 units of PRBC to be on hold I ordered those, discussed with the nurse, and with the patient,A1c is 5.3 MARILEE with creatinine 1.36>> avoid nephrotoxin, start IV fluid monitor kidney function, monitor BMP. MARILEE resolved creatinine 0.7 ( 08/10) S/p right hemicolectomy by Dr. Fernando 08/10 Poss ileus. Plan for KUB gen surgery ff Shortness of breath. Resolved. Satting well on room air. -Exertional in origin, chest x-ray is negative Mostly due to severe acute anemia Ascending colon mass Revealed on colonoscopy, suspecting malignancy, workup in progress GS consulted recommended surgery on Thursday Hematology oncology consulted GI bleed -Hemoglobin 4.9, total order 3 units of blood to be transfused -Appreciate GI consultation, patient going for EGD today and colonoscopy Hypertension blood pressure 170/86 I will add Norvasc and monitor. Discussed with the patient, nurse DC plan pending improvement and clearance by surgeon ( Dr Fernando). Did not pass gas and did not have a bowel movement. Advance diet per surgeon. Cheryl Gomes MD Aug 13, 2017 13:30
[2017-08-13 14:20] LABS: AUTOMATED NEUTROPHIL # 15.6 TH/MM3 (1.8-7.7); BASOPHIL # 0.1 TH/MM3 (0-0.2); BASOPHIL % 0.5 % (0.0-2.0); EOSINOPHIL # 1.1 TH/MM3 (0-0.4); HEMATOCRIT 32.8 % (39.0-51.0); HEMOGLOBIN 9.4 GM/DL (13.0-17.0); LYMPH % 6.4 % (9.0-44.0); LYMPHOCYTE # 1.2 TH/MM3 (1.0-4.8); MEAN CELL VOLUME 67.5 FL (80.0-100.0); MEAN CORPUSCULAR HEMOGLOBIN 19.4 PG (27.0-34.0); MEAN PLATELET VOLUME 8.9 FL (7.0-11.0); MONO % 5.8 % (0.0-8.0); MONOCYTE # 1.1 TH/MM3 (0-0.9); NEUT % 81.3 % (16.0-70.0); PLATELET COUNT 498 TH/MM3 (150-450); RED BLOOD COUNT 4.86 MIL/MM3 (4.50-5.90); RED CELL DISTRIBUTION WIDTH 32.9 % (11.6-17.2); WHITE BLOOD COUNT 19.2 TH/MM3 (4.0-11.0)
[2017-08-13 14:26] LABS: MEAN CORPUSCULAR HGB CONC 28.7 % (32.0-36.0)
[2017-08-13 15:21] LABS: ACANTHOCYTES 1+ (NORMAL); KERATOCYTES OCC (NORMAL); OVALOCYTES 2+ (NORMAL)
[2017-08-13 16:00] VITALS: BP 183/95; PULSE 86; RESP 18; TEMP 97.5; O2SAT 96
[2017-08-13] MEDS: cloNIDine HCL 0.1 MG TAB PO PRN (16:49)
[2017-08-13] MEDS: SODIUM CHLOR 0.9% 1000 ML INJ 1,000 ML IV SCH ×2 (17:31→20:40)
[2017-08-13] MEDS ORDERED: IOHEXOL 350 MG/ML 10 ML VIAL (for RAD DIAG) IVCONTRAST ONE (18:27)
--- NOTE | 2017-08-13 18:38 | RADRPT ---
EXAM DATE: 08/13/2017 6:31 PM EDT AGE/SEX: 61 years / Male INDICATIONS: Abdominal mass, prior abnormal imaging. Evaluate for carcinoma. CLINICAL DATA: This is the patient's subsequent encounter. Patient reports that signs and symptoms h ave been present for 1 week and indicates a pain score of 0/10. MEDICAL/SURGICAL HISTORY: Hypertension. . RADIATION DOSE: 9.69 CTDI (mGy) [place] [facility] [place] [facility] [place] . . TECHNIQUE: Multiple contiguous axial images were obtained through the chest during bolus infusion of 55 ml Omnipaque 350 (iohexol) nonionic water-soluble contrast as a single exam dose. Images were obtained in suspended respiration using multiple row detector helical technique. Using automated exp osure control and adjustment of the mA and/or kV according to patient size, radiation dose was kept a s low as reasonably achievable to obtain optimal diagnostic quality images. FINDINGS: Lungs: No consolidation or pneumothorax. No concerning pulmonary nodule is identified. There is mi ld dependent atelectasis in the right lower lobe. Mediastinum: The heart and great vessels demonstrate no acute abnormality. No lymphadenopathy is pre sent. Pleurae: No pleural effusion or pleural thickening. Axillae: There are mildly prominent lymph nodes in the axilla bilaterally measuring up to 11 mm in s hort axis diameter in the left axilla. Musculoskeletal: The bones and soft tissues demonstrate no acute abnormality. Miscellaneous: There are 2 stable low-density lesions in the liver which were characterized as cysts on the prior MRI. CONCLUSION: There are no findings to indicate metastatic disease within the chest. No concerning pulmonary nodule is seen. Electronically signed by: Manoj Tripathi MD 08/13/2017 6:37 PM EDT
[2017-08-13 20:00] VITALS: BP 176/91; PULSE 74; RESP 17; TEMP 97.7; O2SAT 96
[2017-08-13] MEDS: ENOXAPARIN SODIUM 40 MG/0.4 ML SYRINGE SQ SCH (20:13)
[2017-08-13] MEDS: DOCUSATE SODIUM 50 MG/SENNA 8.6 MG TAB PO SCH (20:13)
[2017-08-14] VITALS: BP 158/83; PULSE 76; RESP 17; TEMP 97.4; O2SAT 96
[2017-08-14 04:00] VITALS: BP 142/77; PULSE 86; RESP 17; TEMP 98.3; O2SAT 96
[2017-08-14 04:59] LABS: AUTOMATED NEUTROPHIL # 10.9 TH/MM3 (1.8-7.7); BASOPHIL % 0.3 % (0.0-2.0); EOSINOPHIL # 1.1 TH/MM3 (0-0.4); EOSINOPHIL % 7.4 % (0.0-4.0); HEMATOCRIT 31.1 % (39.0-51.0); LYMPH % 7.1 % (9.0-44.0); MEAN CELL VOLUME 66.9 FL (80.0-100.0); MEAN CORPUSCULAR HEMOGLOBIN 19.4 PG (27.0-34.0); MEAN PLATELET VOLUME 9.1 FL (7.0-11.0); MONO % 8.6 % (0.0-8.0); MONOCYTE # 1.2 TH/MM3 (0-0.9); NEUT % 76.6 % (16.0-70.0); PLATELET COUNT 500 TH/MM3 (150-450); RED BLOOD COUNT 4.65 MIL/MM3 (4.50-5.90); RED CELL DISTRIBUTION WIDTH 33.7 % (11.6-17.2); WHITE BLOOD COUNT 14.3 TH/MM3 (4.0-11.0)
[2017-08-14 05:02] LABS: MEAN CORPUSCULAR HGB CONC 28.9 % (32.0-36.0)
[2017-08-14 05:15] LABS: CALCIUM 8.4 MG/DL (8.5-10.1)
[2017-08-14 05:37] LABS: TEARDROP RBCS 1+ (NORMAL)
[2017-08-14] MEDS: cloNIDine HCL 0.1 MG TAB PO SCH ×3 (06:07→22:09)
[2017-08-14 08:00] VITALS: BP 140/76; PULSE 80; RESP 17; TEMP 97.6; O2SAT 96
[2017-08-14] MEDS: amLODIPine BESYLATE 5 MG TAB PO SCH (09:40)
[2017-08-14] MEDS: DOCUSATE SODIUM 50 MG/SENNA 8.6 MG TAB PO SCH ×2 (09:40→20:22)
[2017-08-14] MEDS: IRON SUCROSE INJ 200 MG in SODIUM CHLORIDE 0.9% INJ 100 ML IV SCH (09:40)
[2017-08-14] MEDS: SODIUM CHLOR 0.9% 1000 ML INJ 1,000 ML IV SCH ×2 (10:00→20:24)
--- NOTE | 2017-08-14 10:05 | HHI.PR ---
Subjective Remarks Had diarrhea overnight. Feels better today. No more diarrhea today however belly is less distended and has less pain. Passing gas without problems. No fever or chills. He is ambulating without any problems. No nausea vomiting Objective Vitals Vital Signs Date Time Temp Pulse Resp B/P (MAP) Pulse Ox O2 Delivery O2 Flow Rate FiO2 08/14/17 08:00 97.6 80 17 140/76 (97) 96 08/14/17 04:00 98.3 86 17 142/77 (98) 96 08/14/17 00:00 97.4 76 17 158/83 (108) 96 08/13/17 20:00 97.7 74 17 176/91 (119) 96 08/13/17 16:00 97.5 86 18 183/95 (124) 96 08/13/17 12:00 97.4 90 18 177/103 (127) 93 I/O 08/13/17 08/13/17 08/13/17 08/14/17 08/14/17 08/14/17 07:00 15:00 23:00 07:00 15:00 23:00 Intake Total 240 ml 960 ml 1775 ml Balance 240 ml 960 ml 1775 ml Intake Oral 240 ml 960 ml 240 ml IV Total 1535 ml # Voids 3 4 2 # Bowel Movements 2 Result Diagram: 08/14/17 0350 08/14/17 0350 Imaging Last Impressions Chest CT 08/13/17 0000 Signed Impressions: CONCLUSION: There are no findings to indicate metastatic disease within the chest. No john rning pulmonary nodule is seen. Abdomen X-Ray 08/13/17 0000 Signed Impressions: CONCLUSION: Gas pattern most consistent with adynamic ileus Abdomen MRI 08/07/17 0000 Signed Impressions: CONCLUSION: 1. Multiple small scattered lesions in the right lobe of liver with signal mary racteristics characteristic of cysts. 2. Visualization of the known colonic lesion in the yamilex ascending colon. Abdomen/Pelvis CT 08/06/17 0000 Signed Impressions: CONCLUSION: 1. There is a soft tissue mass in the mid ascending colon causing wall thicken ing and luminal narrowing. The appearance is characteristic of a primary colon malignancy. The lesion measures up to 5.1 x 4.0 cm. Adjacent mildly enlarged daly spicious lymph nodes are present in the mesentery measuring up to 11 mm. 2. There are 3 low-density lesions in the liver that are too small to adilene diaz, measuring up to 7 mm. Given the colon findings, this should ideally be fu rther characterized at some point with liver protocol MRI with and without intr avenous contrast. Chest X-Ray 08/05/17 3443 Signed Impressions: CONCLUSION: No acute cardiopulmonary disease. Objective Remarks GENERAL: This is a well-nourished, well-developed patient, in no apparent distress. CARDIOVASCULAR: RRR, no gallops, or rubs. RESPIRATORY: Fair air entry bilaterally. No W, R, or R GASTROINTESTINAL: Abdomen soft, non-tender, distended. Surgical site c/d/i, abdominal binder. Positive bowel sounds however diminished. MUSCULOSKELETAL: Extremities without clubbing, cyanosis, or edema. Pedal pulses appreciated NEUROLOGICAL: Awake and alert. Moves all extremity. Normal speech.no focal neurological deficit A/P Assessment and Plan 61-year-old white male admitted for GI bleed 08/07: EGD came back unremarkable, however colonoscopy revealed ascending colon mass, appreciate GI assistance, general surgery consulted they recommended hemicolectomy on Thursday, however patient is refusing and insisting on leaving AMA, he told me he wants to go visit his sister in [facility] and he has an airplane ticket already put. 08/08: Plan for hemicolectomy on Thursday by Dr. Fernando, continue current care 08/09: Patient reported bowel movement today without blood, plan for hemicolectomy tomorrow with port placement by Dr. Fernando, he previously requested 2 units of PRBC to be on hold I ordered those, discussed with the nurse, and with the patient,A1c is 5.3 MARILEE with creatinine 1.36>> avoid nephrotoxin, start IV fluid monitor kidney function, monitor BMP. MARILEE resolved creatinine 0.7 ( 08/10) S/p right hemicolectomy by Dr. Fernando 08/10 Poss ileus. KUB reviewed patient with gas pattern and adynamic ileus. Resolving gen surgery ff Shortness of breath. Resolved. Satting well on room air. -Exertional in origin, chest x-ray is negative Mostly due to severe acute anemia Ascending colon mass Revealed on colonoscopy, suspecting malignancy, workup in progress GS consulted recommended surgery on Thursday Hematology oncology consulted GI bleed -Hemoglobin 4.9, total order 3 units of blood to be transfused -Appreciate GI consultation, patient going for EGD today and colonoscopy Hypertension blood pressure 170/86 I will add Norvasc and monitor. Discussed with the patient, nurse DC plan pending improvement and clearance by surgeon ( Dr Fernando). Patient is positive and did have diarrhea overnight 08/14. Advance diet per surgeon. Possible discharge home tomorrow per surgery if improves and no events overnight. Cheryl Gomes MD Aug 14, 2017 10:05
[2017-08-14 12:00] VITALS: BP 161/91; PULSE 84; RESP 17; TEMP 98.3; O2SAT 98
[2017-08-14] MEDS: cloNIDine HCL 0.1 MG TAB PO PRN (12:52)
[2017-08-14] MEDS: diphenhydrAMINE HCL 25 MG CAP PO PRN (12:52)
[2017-08-14] MEDS: PANTOPRAZOLE SODIUM 40 MG VIAL IV PUSH SCH (12:52)
--- NOTE | 2017-08-14 14:48 | HHI.PR ---
Subjective Subjective Notes Resting in bed "I had a rough night last night because I had diarrhea." Objective Vitals/I&O Vital Signs Date Time Temp Pulse Resp B/P (MAP) Pulse Ox O2 Delivery O2 Flow Rate FiO2 08/14/17 12:00 98.3 84 17 161/91 (114) 98 08/10/17 12:30 Room Air Labs Laboratory Tests Test 08/14/17 03:50 White Blood Count 14.3 Red Blood Count 4.65 Hemoglobin 9.0 Hematocrit 31.1 Mean Corpuscular Volume 66.9 Mean Corpuscular Hemoglobin 19.4 Mean Corpuscular Hemoglobin Concent 28.9 Red Cell Distribution Width 33.7 Platelet Count 500 Mean Platelet Volume 9.1 Neutrophils (%) (Auto) 76.6 Lymphocytes (%) (Auto) 7.1 Monocytes (%) (Auto) 8.6 Eosinophils (%) (Auto) 7.4 Basophils (%) (Auto) 0.3 Neutrophils # (Auto) 10.9 Lymphocytes # (Auto) 1.0 Monocytes # (Auto) 1.2 Eosinophils # (Auto) 1.1 Basophils # (Auto) 0.0 CBC Comment AUTO DIFF Differential Comment AUTO DIFF CONFIRMED Platelet Estimate HIGH Platelet Morphology Comment NORMAL Tear Drop Cells 1+ Blood Urea Nitrogen 11 Creatinine 1.00 Random Glucose 105 Calcium Level 8.4 Sodium Level 144 Potassium Level 3.6 Chloride Level 108 Carbon Dioxide Level 26.0 Anion Gap 10 Estimat Glomerular Filtration Rate 92 Cardiovascular: Regular Lungs: Clear Abdomen: Other (lap sites c/d/i; JACOBO in place with good seal ) Extremities: No edema A/P Assessment and Plan 61 year old male with anemia; colon mass visualized on colonoscopy; POD4 lap assisted RIGHT hemicolectomy -[facility] 9.0; VSS -Continue Lovenox -DC IVF -Medical Oncology following -Regular diet -OOB and mobilize -Pain control -IS -Likely DC tomorrow if no acute events overnight Attending Note - Dr. Fernando Had a BM Wound clean and dry Diet advanced Home tomorrow The exam, history, and the medical decision-making described in the above note were completed with the assistance of the mid-level provider. I reviewed and agree with the findings presented. I attest that I had a [id number] encounter with the patient on the same day, and personally performed and documented my assessment and findings in the medical record. Marietta Jonas/First Leonel CROOK Aug 14, 2017 14:48 Kalen Fernando MD Aug 17, 2017 11:25
[2017-08-14 16:00] VITALS: BP 150/80; PULSE 78; RESP 18; TEMP 98.3; O2SAT 97
[2017-08-14] MEDS: ENOXAPARIN SODIUM 40 MG/0.4 ML SYRINGE SQ SCH (20:24)
[2017-08-14 20:26] VITALS: BP 142/74; PULSE 84; RESP 17; TEMP 98.3; O2SAT 97
[2017-08-15 00:10] VITALS: BP 138/82; PULSE 69; RESP 18; TEMP 97.6; O2SAT 98
[2017-08-15] MEDS: cloNIDine HCL 0.1 MG TAB PO SCH (05:06)
[2017-08-15 08:00] VITALS: BP 136/82; PULSE 77; RESP 16; TEMP 98.1; O2SAT 97
[2017-08-15] MEDS: DOCUSATE SODIUM 50 MG/SENNA 8.6 MG TAB PO SCH (09:22)
[2017-08-15] MEDS: diphenhydrAMINE HCL 25 MG CAP PO PRN (09:22)
[2017-08-15] MEDS: amLODIPine BESYLATE 5 MG TAB PO SCH (09:22)
--- NOTE | 2017-08-15 10:14 | HHI.PR ---
Subjective Remarks Patient seen and examined this morning, their vitals are stable and the patient is afebrile. Patient states he had a rough night last night, had abdominal pain and diarrhea. Took a pain pill and this helped. Today he is without abdominal pain. Tolerated a full breakfast. Breathing well, no complaints. Reports hes going to [place] in 10 days. Objective Vital Signs Date Time Temp Pulse Resp B/P (MAP) Pulse Ox O2 Delivery O2 Flow Rate FiO2 08/15/17 08:00 98.1 77 16 136/82 (100) 97 08/15/17 00:20 18 08/15/17 00:10 97.6 69 18 138/82 (100) 98 08/14/17 20:26 98.3 84 17 142/74 (96) 97 08/14/17 16:00 98.3 78 18 150/80 (103) 97 08/14/17 12:00 98.3 84 17 161/91 (114) 98 I/O 08/14/17 08/14/17 08/14/17 08/15/17 08/15/17 08/15/17 07:00 15:00 23:00 07:00 15:00 23:00 Intake Total 1775 ml 960 ml 780 ml Balance 1775 ml 960 ml 780 ml Intake Oral 240 ml 960 ml 780 ml IV Total 1535 ml # Voids 2 4 # Bowel Movements 2 1 Result Diagram: 08/14/17 0350 08/14/17 0350 Imaging Last Impressions Chest CT 08/13/17 0000 Signed Impressions: CONCLUSION: There are no findings to indicate metastatic disease within the chest. No john rning pulmonary nodule is seen. Abdomen X-Ray 08/13/17 0000 Signed Impressions: CONCLUSION: Gas pattern most consistent with adynamic ileus Abdomen MRI 08/07/17 0000 Signed Impressions: CONCLUSION: 1. Multiple small scattered lesions in the right lobe of liver with signal mary racteristics characteristic of cysts. 2. Visualization of the known colonic lesion in the yamilex ascending colon. Abdomen/Pelvis CT 08/06/17 0000 Signed Impressions: CONCLUSION: 1. There is a soft tissue mass in the mid ascending colon causing wall thicken ing and luminal narrowing. The appearance is characteristic of a primary colon malignancy. The lesion measures up to 5.1 x 4.0 cm. Adjacent mildly enlarged daly spicious lymph nodes are present in the mesentery measuring up to 11 mm. 2. There are 3 low-density lesions in the liver that are too small to characte emily, measuring up to 7 mm. Given the colon findings, this should ideally be fu rther characterized at some point with liver protocol MRI with and without intr avenous contrast. Chest X-Ray 08/05/17 1333 Signed Impressions: CONCLUSION: No acute cardiopulmonary disease. Objective Remarks GENERAL: Well-appearing, no acute distress SKIN: Warm and dry. HEAD: Normocephalic. EYES: No scleral icterus. No injection or drainage. NECK: Supple, trachea midline. No JVD or lymphadenopathy. CARDIOVASCULAR: Regular rate and rhythm without murmurs, gallops, or rubs. RESPIRATORY: Breath sounds equal bilaterally. No accessory muscle use. GASTROINTESTINAL: Abdomen soft, non-tender. RLQ drain placed. He has and abdominal binder on, there is some old bodily fluids on it. MUSCULOSKELETAL: No cyanosis, or edema. A/P Problem List: (1) GI bleed ICD Code: K92.2 - Gastrointestinal hemorrhage, unspecified Status: Acute (2) Colonic mass ICD Code: K63.9 - Disease of intestine, unspecified (3) Symptomatic anemia ICD Code: D64.9 - Anemia, unspecified Status: Acute Assessment and Plan 61-year-old male admitted for GI bleed. Patient had an EGD that was unremarkable. Colonoscopy was performed which revealed an ascending colonic mass. General surgery was consulted who recommended hemicolectomy. Patiently initially refused this, but then proceeded. Colonic mass S/P hemicolectomy on 08/10 Followed by oncology: Pathology shows adenocarcinoma with clear margins. Will not need chemotherapy. CT chest ordered for staging showed no findings indicate metastatic disease GI bleed Hb stable, s/p transfusion of 3 units Ileus resolving general surgery signed off Hypertension Continue Norvasc DVT prophy patient is ambulatory Discharge Planning DC pending surgical clearance, likely today. Problem Qualifiers (1) GI bleed: Qualified Codes: K92.2 - Gastrointestinal hemorrhage, unspecified Heidy Castillo MD Aug 15, 2017 10:14
[2017-08-15] MEDS: SODIUM CHLOR 0.9% 1000 ML INJ 1,000 ML IV SCH (10:53)
[2017-08-15] MEDS: PANTOPRAZOLE SODIUM 40 MG VIAL IV PUSH SCH (10:57)
[2017-08-15 12:00] VITALS: BP 160/93; PULSE 86; RESP 18; TEMP 97.8; O2SAT 95
--- NOTE | 2017-08-15 12:31 | HHI.PR ---
cc: Prudence Raza MD Subjective Subjective Notes DAILY PROGRESS NOTE FOR SURGICAL ATTENDING, DR. PRUDENCE RAZA I feel good Can I go home Objective Vitals/I&O Vital Signs Date Time Temp Pulse Resp B/P (MAP) Pulse Ox O2 Delivery O2 Flow Rate FiO2 08/15/17 12:00 97.8 86 18 160/93 (115) 95 Labs Laboratory Tests Test 08/05/17 13:30 08/07/17 14:17 08/08/17 05:52 08/09/17 11:44 Differential Total Cells Counted 100 Neutrophils % (Manual) 84 % Band Neutrophils % 1 % Lymphocytes % 10 % Monocytes % 2 % Eosinophils % 3 % Neutrophils # (Manual) 8.8 TH/MM3 Prothrombin Time 10.9 SEC Prothromb Time International Ratio 1.1 RATIO Activated Partial Thromboplast Time 24.2 SEC B-Type Natriuretic Peptide 84 PG/ML Tumor Marker Alpha Fetoprotein 3.0 NG/ML Carcinoembryonic Antigen 1.6 NG/ML Stomatocytes 1+ Hemoglobin A1c 5.3 % Blood Urea Nitrogen 13 MG/DL Creatinine 1.04 MG/DL Random Glucose 127 MG/DL Calcium Level 9.0 MG/DL Phosphorus Level 2.6 MG/DL Magnesium Level 2.2 MG/DL Sodium Level 141 MEQ/L Potassium Level 3.3 MEQ/L Chloride Level 106 MEQ/L Carbon Dioxide Level 26.3 MEQ/L Test 08/09/17 14:00 08/10/17 11:17 08/11/17 07:21 08/12/17 06:42 Urine Color LIGHT-YELLOW Urine Turbidity CLEAR Urine pH 7.5 Urine Specific [place] 1.006 Urine Protein NEG mg/dL Urine Glucose (UA) NEG mg/dL Urine Ketones NEG mg/dL Urine Occult Blood NEG Urine Nitrite NEG Urine Bilirubin NEG Urine Urobilinogen LESS THAN 2.0 MG/DL Urine Leukocyte Esterase NEG Urine RBC LESS THAN 1 /hpf Urine WBC LESS THAN 1 /hpf Urine Squamous Epithelial Cells <1 /hpf Urine Hyaline Casts 2 /lpf Microscopic Urinalysis Comment CULT NOT INDICATED Target Cells 1+ Protein Corrected Calcium 8.5 MG/DL Blood Urea Nitrogen 7 MG/DL Creatinine 0.79 MG/DL Random Glucose 104 MG/DL Total Protein 4.5 GM/DL Calcium Level 7.1 MG/DL Sodium Level 142 MEQ/L Potassium Level 3.9 MEQ/L Chloride Level 107 MEQ/L Carbon Dioxide Level 18.0 MEQ/L Helmet Cells OCC Spherocytes 1+ Iron Level 9 MCG/DL Total Iron Binding Capacity 291 MCG/DL Percent Iron Saturation 3.1 % Ferritin 34 NG/ML Vitamin B12 Level 1063 PG/ML Red Blood Cell Folate 725 Test 08/13/17 13:47 08/14/17 03:50 Ovalocytes 2+ Acanthocytes 1+ Keratocytes OCC White Blood Count 14.3 TH/MM3 Red Blood Count 4.65 MIL/MM3 Hemoglobin 9.0 GM/DL Hematocrit 31.1 % Mean Corpuscular Volume 66.9 FL Mean Corpuscular Hemoglobin 19.4 PG Mean Corpuscular Hemoglobin Concent 28.9 % Red Cell Distribution Width 33.7 % Platelet Count 500 TH/MM3 Mean Platelet Volume 9.1 FL Neutrophils (%) (Auto) 76.6 % Lymphocytes (%) (Auto) 7.1 % Monocytes (%) (Auto) 8.6 % Eosinophils (%) (Auto) 7.4 % Basophils (%) (Auto) 0.3 % Neutrophils # (Auto) 10.9 TH/MM3 Lymphocytes # (Auto) 1.0 TH/MM3 Monocytes # (Auto) 1.2 TH/MM3 Eosinophils # (Auto) 1.1 TH/MM3 Basophils # (Auto) 0.0 TH/MM3 CBC Comment AUTO DIFF Differential Comment AUTO DIFF CONFIRMED Platelet Estimate HIGH Platelet Morphology Comment NORMAL Tear Drop Cells 1+ Blood Urea Nitrogen 11 MG/DL Creatinine 1.00 MG/DL Random Glucose 105 MG/DL Calcium Level 8.4 MG/DL Sodium Level 144 MEQ/L Potassium Level 3.6 MEQ/L Chloride Level 108 MEQ/L Carbon Dioxide Level 26.0 MEQ/L Anion Gap 10 MEQ/L Estimat Glomerular Filtration Rate 92 ML/MIN PATHOLOGY report FINAL DIAGNOSIS: COLON: RESECTION. PROCEDURE: RIGHT HEMICOLECTOMY. TUMOR SITE: RIGHT (ASCENDING) COLON. TUMOR SIZE: 6.5 X 4.5 X 1.0 CM. MACROSCOPIC TUMOR PERFORATION: NOT IDENTIFIED. HISTOLOGIC TYPE: ADENOCARCINOMA. HISTOLOGIC GRADE: G2 (MODERATELY DIFFERENTIATED). TUMOR EXTENSION: TUMOR INVADES THROUGH THE MUSCULARIS PROPRIA INTO PERICOLONIC TISSUES. SPECIMEN MARGINS: ALL MARGINS ARE UNINVOLVED BY INVASIVE CARCINOMA, HIGH GRADE DYSPLASIA, INTRAMUCOSAL ADENOCARCINOMA AND ADENOMA. MARGINS EXAMINED: DISTAL, PROXIMAL AND RADIAL. PROXIMAL MARGIN: UNINVOLVED BY INVASIVE CARCINOMA. DISTAL MARGIN: UNINVOLVED BY INVASIVE CARCINOMA. RADIAL MARGIN: UNINVOLVED BY INVASIVE CARCINOMA. TREATMENT EFFECT: NO KNOWN PRESURGICAL THERAPY. LYMPHOVASCULAR INVASION: NOT IDENTIFIED. PERINEURAL INVASION: NOT IDENTIFIED. TYPE OF POLYP IN WHICH INVASIVE CARCINOMA AROSE: NONE IDENTIFIED. TUMOR DEPOSITS: NOT IDENTIFIED. REGIONAL LYMPH NODES: NUMBER OF LYMPH NODES INVOLVED: 0 NUMBER OF LYMPH NODES EXAMINED: 21 PATHOLOGIC STAGE CLASSIFICATION (pTNM, AJCC 8th Edition): pT3, pN0, pMX. ADDITIONAL PATHOLOGICAL FINDINGS: NONE IDENTIFIED. Cardiovascular: Regular Abdomen: Non-distended, Post-op tenderness, BS normal Narrative Exam Skye dressing removed Steri-Strips intact Wound has good healing properties A/P Problem List: (1) S/P right colectomy ICD Codes: Z90.49 - Acquired absence of other specified parts of digestive tract Status: Acute (2) Colon cancer ICD Codes: C18.9 - Malignant neoplasm of colon, unspecified Status: Chronic (3) Colonic mass ICD Codes: K63.9 - Disease of intestine, unspecified Status: Chronic Assessment and Plan 61 year old male with anemia; colon mass visualized on colonoscopy; POD4 lap assisted RIGHT hemicolectomy -[facility] [place] 9.0; VSS -Continue Lovenox -DC IVF -Medical Oncology following -Regular diet -OOB and mobilize -Pain control -IS -Likely DC today Patient says he has an appointment on Thursday with Dr. Fernando Attending Statement NOTE FOR SURGICAL ATTENDING, DR. PRUDENCE RAZA I attest that I had a [id number] encounter with the patient on the same day, and personally performed and documented my assessment and findings in the medical record. The following services were provided during this hospital visit: Chart data review, vital sign assessments/reviewing monitor data Review of consultations notes if present. Medication orders/review and/or management Ordering and/or reviewing lab tests Ordering and/or interpreting/reviewing x-rays and/or diagnostic studies Care of the patient and discussion of the patient with the care team Documentation time To help prompt me to consider important information that might be impacting today's encounter and assessment, Information from prior notes written by myself or my colleagues may have been "brought forward/copy and pasted" into today's note. Problem Qualifiers (1) Colon cancer: Qualified Codes: C18.2 - Malignant neoplasm of ascending colon Prudence Raza MD Aug 15, 2017 12:31
== END 2017-08-15 13:15 | disposition home or self-care (01) | DRG 330 ==
LOC: NEPE 13:06 → NEDA 15:34 → OBSVTOIN 15:35 → N05A 17:57 → N03B 08-10 09:30 → N07B 08-10 12:52
PROVIDERS: ADMIT Family Medicine; ATTEND Family Medicine
PROC: 30233N1 Transfusion of Nonautologous Red Blood Cells into Peripheral Vein, Percutaneous Approach (ICD-10-PCS; 2017-08-05)
PROC: 0DJ08ZZ Inspection of Upper Intestinal Tract, Via Natural or Artificial Opening Endoscopic (ICD-10-PCS; 2017-08-06)
PROC: 0DBK8ZX Excision of Ascending Colon, Via Natural or Artificial Opening Endoscopic, Diagnostic (ICD-10-PCS; 2017-08-06)
PROC: 0DTF0ZZ Resection of Right Large Intestine, Open Approach (ICD-10-PCS; principal; 2017-08-10 08:10)
DX: C18.2 Malignant neoplasm of ascending colon (principal); K56.0 Paralytic ileus; N17.9 Acute kidney failure, unspecified; K76.89 Other specified diseases of liver; K92.2 Gastrointestinal hemorrhage, unspecified; I10 Essential (primary) hypertension; R06.02 Shortness of breath; D50.9 Iron deficiency anemia, unspecified; R63.4 Abnormal weight loss; K29.70 Gastritis, unspecified, without bleeding; K64.4 Residual hemorrhoidal skin tags; K64.8 Other hemorrhoids; R59.9 Enlarged lymph nodes, unspecified; Z79.82 Long term (current) use of aspirin
CPT/HCPCS: 36430; 71045; 71260; 74018; 74177; 74183; 80048; 81001; 82105; 82378; 82607; 82728; 82747; 82948; 83036; 83540; 83550; 83735; 83880; 84100; 84155; 85007; 85014; 85018; 85025; 85027; 85610; 85730; 86850; 86900; 86901; 86920; 88305; 88307; 88309; 93005; 94150; 99285; A9579; C9113; J0131; J0690; J1200; J1644; J1650; J1756; J1885; J1940; J2270; J2370; J2405; J2710; J3010; J3480; J7030; J7040; P9016; Q9963; Q9967